=== PATIENT | male | born 1945 | race African-American/Black ===

== ENCOUNTER 2024-11-04 11:07 | Inpatient (IN) ==
[2024-11-04] MEDS: ZOFRAN INJ 4 MG VIAL IVP ONE (11:30)
[2024-11-04 11:35] LABS: MEAN PLATELET VOLUME 9.5 fL (7.4-11.0); RED CELL DISTRIBUTION WIDTH 16.5 % (11.6-16.5)
[2024-11-04 11:47] LABS: COR NA(FOR HYPERGLY) 141 mmol/L (136-145); CREATININE 1.57 mg/dL (0.70-1.30); eGFR NON BLACK RACES 46 (>60)
[2024-11-04] MEDS: MAG-OX TAB PO ONE (12:09)
[2024-11-04] MEDS: K-DUR TAB 20 MEQ PO ONE (12:09)
--- NOTE | 2024-11-04 12:40 | EKG ---
Test Reason : rapid irregular rate Blood Pressure : */* mmHG Vent. Rate : 113 BPM Atrial Rate : * BPM P-R Int : * ms QRS Dur : 104 ms QT Int : 360 ms P-R-T Axes : * -14 110 degrees QTc Int : 493 ms Sinus tachycardia with pacs Incomplete right bundle branch block Septal infarct (cited on or before 22-OCT-2024) Abnormal ECG When compared with ECG of 22-OCT-2024 10:49, Incomplete right bundle branch block is new Nonspecific T wave abnormality no longer evident in Inferior leads Confirmed by Kurtis Oviedo MD ([id number]) on 11/05/2024 7:38:30 AM Referred By: Confirmed By: Kurtis Oviedo MD
[2024-11-04] MEDS: LOPRESSOR INJ 5 MG AMP IVP ONE ×2 (12:51→12:56)
[2024-11-04 13:26] LABS: BLOOD/HEMOGLOBIN,URINE 1+ (NEGATIVE); LEUKOCYTE ESTERASE ,URINE 3+ (NEGATIVE); NITRITES,URINE POSITIVE (NEGATIVE)
[2024-11-04 13:31] LABS: APPEARANCE,URINE HAZY (CLEAR)
[2024-11-04 13:32] LABS: SQUAMOUS EPITHELIAL CELL,UR FEW /HPF (NEGATIVE)
--- NOTE | 2024-11-04 14:16 | DR.DIZZY ---
HPI Time seen Time Seen by Provider: 11/04/24 11:30 PCP Primary Care Physician: jeramy HPI Comment HPI Comment: Patient states he has hand hiccups for over 6 months and that is why he was getting the CT of his abdomen and pelvis today. He and his family state that he has just been feeling off over the last couple of days. Patient states he does not have water behind his eyes or popping in his ears but he feels like he can breathe through his ears at the time. He is alert and oriented x 3 but states it is just difficult for him to describe and that may be the best way is as generalized weakness. Complaint Chief Complaint:: "water behind eyes. popping in ears. weakness" Self Treatment fo Chief Complaint: n/a COVID-19 Coronavirus risk:travel/contact w/high risk person: No Has patient experienced Coronavirus symptoms: No Source History Provided: Patient Mode of Arrival Mode of Arrival: Wheelchair Timing Onset of Chief Complaint: 10/28/24 Context Stroke Symptoms: None PMH PMH Past Medical History: Yes Past Medical History: Diabetes, Hypertension and Cancer Past Medical History Comment: colon ca- 25 years ago Past Surgical History: Yes Past Surgical History Comment: partial colon removal 25 years ago Family History History of Family Medical Conditions: Yes Family Medical History: Diabetes Mellitus, Cancer, [place], Coronary Artery Disease and Hypertension Social History Type of Tobacco Use: None Do you use any recreational Drugs:: No Lives With: Alone Lives Where: Home Travel Risk Coronavirus risk:travel/contact w/high risk person: No Has patient experienced Coronavirus symptoms: No Infectious screening Have you traveled outside the country in the last 6 months?: No Isolation: Standard ROS Review of Systems Constitutional: No Symptoms Reported Eyes: No Symptoms Reported ENTM: No Symptoms Reported Respiratoy: No Symptoms Reported; negative Short of Breath or Wheezing Cardiovascular: No Symptoms Reported; negative Chest Pain, Edema, Palpitations or Syncope Gastrointestinal/Abdominal: See HPI Genitourinary: Frequency; negative Discharge, Dysuria or Hematuria Neurological: No Symptoms Reported Musculoskeletal: No Symptoms Reported Integumentary: No Symptoms Reported Hematologic/Lymphatic: No Symptoms Reported Endocrine: No Symptoms Reported Psychiatric: No Symptoms Reported All Other Systems: Reviewed and Negative PE Vital Signs Vitals: Vital Signs Temperature 97.9 F Pulse Rate 99 Pulse Rate 99 Pulse Rate 120 Respiratory Rate 17 Respiratory Rate 19 Respiratory Rate 18 Blood Pressure 125/88 Blood Pressure 147/107 Blood Pressure 155/85 O2 Sat by Pulse Oximetry 96 O2 Sat by Pulse Oximetry 98 General Limitations: No Limitations General Appearance: Alert and In No Apparent Distress Head Head Exam: Normal Inspection Eyes Eye exam: Normal Appearance ENT ENT Exam: Normal Exam, Normal Oropharynx and Normal External Ear Exam Neck Neck Exam: Normal Inspection and Full ROM Chest Chest Inspection: Normal Inspection Respiratory Respiratory Exam: Normal Lung Sounds Bilat Cardiovascular Cardiovascular Exam: Normal Rhythm and Tachycardia Abdominal Exam Abdominal Exam: Normal Inspection, Normal Bowel Sounds and Soft Rectal Rectal Exam: Deferred Extremeties Extremities Exam: Normal Inspection and Full ROM Back Back Exam: Normal Inspection and Full ROM Neurologic Neurological Exam: Alert and Oriented X3 Psychiatric Psychiatric Exam: Normal Affect and Normal Mood Skin Skin Exam: Warm, Dry, Intact and Normal Color COURSE Treatment Treatment: Patient with new onset A-fib, CHF exacerbation and UTI. Discussed results of workup with patient and family. Consultation Called: 14:16 Consultation Comments: Discussed case with Dr. Stanton and he is agreeable to admission. ROR Labs Reviewed Laboratory Results Reviewed?: Yes 11/04/24 10:35 11/04/24 10:35 Laboratory: WBC 4.8 X10^3/uL (3.6-10.0) 11/04/24 10:35 RBC 4.67 X10^6/uL (4.7-6.0) L 11/04/24 10:35 Hgb 12.2 g/dL (13.5-18.0) L 11/04/24 10:35 Hct 37.9 % (42.0-54.0) L 11/04/24 10:35 MCV 81.1 fL (80.0-100.0) 11/04/24 10:35 MCH 26.2 pg (27.0-34.0) L 11/04/24 10:35 MCHC 32.3 g/dL (33.0-35.0) L 11/04/24 10:35 RDW 16.5 % (11.6-16.5) 11/04/24 10:35 Plt Count 166 X10^3/uL (150.0-450.0) 11/04/24 10:35 MPV 9.5 fL (7.4-11.0) 11/04/24 10:35 Neut % (Auto) 67.3 % (42.0-75.0) 11/04/24 10:35 Lymph % (Auto) 25.6 % (21.0-51.0) 11/04/24 10:35 [place] % (Auto) 5.4 % (0.0-13.0) 11/04/24 10:35 Eos % (Auto) 1.0 % (0.9-2.9) 11/04/24 10:35 Baso % (Auto) 0.7 % (0.2-1.0) 11/04/24 10:35 Neut # (Auto) 3.2 x10^3/uL (2.2-4.8) 11/04/24 10:35 Lymph # (Auto) 1.2 X10^3/uL (1.3-2.9) L 11/04/24 10:35 [place] # (Auto) 0.3 x10^3/uL (0.3-0.8) 11/04/24 10:35 Eos # (Auto) 0.1 x10^3/uL (0.0-0.2) 11/04/24 10:35 Baso # (Auto) 0.0 X10^3/uL (0.0-0.1) 11/04/24 10:35 Absolute Nucleated RBC 0.1 /100WBC 11/04/24 10:35 Sodium 139 mmol/L (136-145) 11/04/24 10:35 Corrected Sodium 141 mmol/L (136-145) 11/04/24 10:35 Potassium 3.4 mmol/L (3.5-5.1) L 11/04/24 10:35 Chloride 102 mmol/L (98-107) 11/04/24 10:35 Carbon Dioxide 30.3 mmol/L (21-32) 11/04/24 10:35 BUN 13 mg/dL (7-18) 11/04/24 10:35 Creatinine 1.57 mg/dL (0.70-1.30) H 11/04/24 10:35 Est GFR (MDRD) Af Amer 55 (>60) L 11/04/24 10:35 Est GFR (MDRD) Non-Af 46 (>60) L 11/04/24 10:35 Glucose 195 mg/dL (65-99) H 11/04/24 10:35 Calcium 9.2 mg/dL (8.5-10.1) 11/04/24 10:35 Corrected Calcium TNP 11/04/24 10:35 Magnesium 1.5 mg/dL (2.0-2.9) L 11/04/24 10:35 Total Bilirubin 2.40 mg/dL (0.2-1.0) H 11/04/24 10:35 AST 41 Units/L (15-37) H 11/04/24 10:35 ALT 68 Units/L (12-78) 11/04/24 10:35 Alkaline Phosphatase 231 Units/L (46-116) H 11/04/24 10:35 B-Natriuretic Peptide 1640 pg/mL (0-79) H 11/04/24 10:35 Total Protein 7.9 g/dL (6.4-8.2) 11/04/24 10:35 Albumin 3.6 g/dL (3.4-5.0) 11/04/24 10:35 Globulin 4.3 g/dL (2.5-4.5) 11/04/24 10:35 Albumin/Globulin Ratio 0.8 Ratio (1.1-2.1) L 11/04/24 10:35 Amylase 63 Units/L (25-115) 11/04/24 10:35 Lipase 17 Units/L (16-77) 11/04/24 10:35 Specimen Type Clean catch urine 11/04/24 13:19 Urine Color Dark yellow (YELLOW) 11/04/24 13:19 Urine Appearance Hazy (CLEAR) 11/04/24 13:19 Urine pH 5.0 (5.0 - 8.0) 11/04/24 13:19 Ur Specific [place] 1.010 (1.000-1.030) 11/04/24 13:19 Urine Protein 3+ (NEGATIVE) 11/04/24 13:19 Urine Glucose (UA) Negative (NEGATIVE) 11/04/24 13:19 Urine Ketones Negative (NEGATIVE) 11/04/24 13:19 Urine Blood 1+ (NEGATIVE) 11/04/24 13:19 Urine Nitrite Positive (NEGATIVE) 11/04/24 13:19 Urine Bilirubin Negative (NEGATIVE) 11/04/24 13:19 Urine Urobilinogen 1+ (NORMAL) 11/04/24 13:19 Ur Leukocyte Esterase 3+ (NEGATIVE) 11/04/24 13:19 Urine RBC 3-5 /HPF (0-3) A 11/04/24 13:19 Urine WBC 10-20 /HPF (0-5) A 11/04/24 13:19 Ur Squamous Epith Cells Few /HPF (NEGATIVE) 11/04/24 13:19 Amorphous Sediment 1+ /HPF (NEGATIVE) 11/04/24 13:19 Urine Bacteria 2+ /HPF (NEGATIVE) 11/04/24 13:19 Ur Culture Indicated? Yes/culture set up 11/04/24 13:19 Other Results Comments: Name: JORGE LUIS HUGHES : 1945 Sex: M Location: [facility] Order Number(s): [id number] Procedure(s):CT ABDOMEN/PELVIS WITH CON Ordering Physician: FLETCHER RIVERA Primary Care: Glen Stanton MD Service Date: 11/04/24 Service Time: 1100 EXAM: CT ABDOMEN AND PELVIS WITH CONTRAST HISTORY: Weight loss Vomiting History of malignant neoplasm; COMPARISON: CT chest dated 10/22/2024. TECHNIQUE: Axial CT images were obtained through the abdomen and pelvis after the intravenous administration of contrast. Coronal and sagittal reformatted images were included. Informed written consent was obtained prior to contrast administration. All CT scans at this facility use dose modulation, iterative reconstruction, and/or weight based dosing when appropriate to reduce radiation dose to as low as reasonably achievable. FINDINGS: Cardiomegaly. Small pleural effusions, [id number]-left. Unremarkable liver. Small dependent calcified gallstone. No gallbladder wall thickening or pericholecystic fluid. No biliary dilatation. Spleen, pancreas, and adrenals are unremarkable. Kidneys enhance symmetrically and there is no hydronephrosis or perinephric stranding. Simple fluid density right kidney 2.3 cm cyst. Mild aortoiliac atherosclerosis without aneurysm. No lymphadenopathy. No abnormally distended or focally thickened bowel loops. Normal right lower quadrant appendix. No free air. Trace ascites is predominantly perihepatic and extending into the pelvis. Mild diffuse urinary bladder wall thickening. No acute or suspicious osseous findings. Mild lumbar spondylosis. IMPRESSION: 1. Mild diffuse urinary bladder wall thickening may be secondary to underdistention or cystitis. Correlate with urinalysis. 2. Cardiomegaly with small pleural effusions, [id number]-left. Findings are suspicious for fluid overload and possible pulmonary edema. THIS IS AN ELECTRONICALLY VERIFIED FINAL REPORT 11/04/2024 12:38 PM - Electronically signed by Michael Chan MD EKG Rate: 113 Rhythm: Afib ST: Normal Opioid Opioid Risk Tool Age ([place] box if 16-45): No History of Preadolescent Sexual Abuse: No Total: 0 Total Score Risk Category: Low Risk Copyright: [facility] predicting aberrant behaviors Discharge Plan Diagnosis Discharge Problem: Acute UTI, New onset atrial fibrillation, CHF exacerbation Discharge Plan Patient Disposition: ADMITTED INPATIENT Condition: Stable Prescriptions: No Action chlorpromazine 10 mg tablet 10 mg PO TID PRN (Reason: hiccups) 10 Days Qty: 30 0RF metformin 1,000 mg tablet 1,000 mg PO BID 90 Days Qty: 180 4RF simvastatin 40 mg tablet 40 mg PO QDAY 90 Days Qty: 90 4RF metoprolol tartrate 50 mg tablet 50 mg PO BID 90 Days Qty: 180 4RF pioglitazone 30 mg tablet 30 mg PO QDAY 90 Days Qty: 90 4RF chlorpromazine 25 mg tablet 25 mg PO TID MDD 3 Qty: 30 0RF pantoprazole 40 mg tablet,delayed release (DR/EC) 40 mg PO QDAY MDD 1 Qty: 30 0RF Health Concerns: Post Hospitalization: new medications and changes needed to prevent readmission or further decline. Pt educated and given instructions on all concerns. Plan of Treatment: Continue with present treatment and follow up plan. Pt is to keep follow up appointment as instructed and take medications as ordered. Orders to Discharge Patient Discharge Orders: Transfer (Routine); Ordered 11/04/24 Ordered By: Nasim Chandler Follow ups/Referrals Follow ups/Referrals: Glen Stanton MD [Primary Care Provider, MEDICAL] - 3 days Instructions Stand Alone Forms: Find Help Web Site, Post Hospital Follow Up Care Print Language: ARMENIAN
[2024-11-04] MEDS: ROCEPHIN VIAL 1 GRAM 1 G in NS 100 ML IV 100 ML IV ONE (14:31)
[2024-11-04] MEDS: LASIX IVP ONE (14:35)
[2024-11-04] MEDS: ROCEPHIN VIAL 1 GRAM IVP ONE (14:36)
[2024-11-04] MEDS ORDERED: ULTRAM PO PRN (15:53)
[2024-11-04] MEDS ORDERED: TYLENOL 325 MG TAB PO PRN (15:53)
[2024-11-04] MEDS ORDERED: NORCO 5/325 MG TAB PO PRN (15:53)
[2024-11-04] MEDS ORDERED: ZOFRAN INJ 4 MG VIAL IVP PRN (15:53)
[2024-11-04] MEDS: NovoLIN R (or HumuLIN R) SUBCUT PRN (18:01)
[2024-11-04] MEDS: MAG-OX TAB PO NR (18:22)
[2024-11-04] MEDS: KLOR-CON 10 MEQ TAB PO NR (18:23)
[2024-11-04] MEDS: SNACK - Diabetic Appropriate PO SCH (19:00)
[2024-11-04] MEDS: LOPRESSOR INJ 5 MG AMP ONE (19:11)
[2024-11-04] MEDS: CONSULT PHARMACY - POTASSIUM & MAGNESIUM XX SCH (19:11)
[2024-11-04] MEDS: ROCEPHIN VIAL 1 GRAM ONE (19:11)
--- NOTE | 2024-11-04 19:27 | DR.H&P ---
H&P History & Physical for Day of: H&P Date: 11/04/24 Chief Complaint Chief Complaint: hiccups generalized weakness History of Present Illness History of Present Illness: Patient is a 79-year-old male with a past medical history of hypertension, diabetes, CKD, GERD, presenting with generalized weakness and having hiccups. He has difficulty explaining exactly how he is feeling. He denies having chest pain or feeling really short of breath. Denies fevers or chills. Reports some urinary frequency but denies dysuria. Labs/imaging: WBC 4.8, hemoglobin 12.2, platelets 166, sodium 139, potassium 3.4, creatinine 1.57, glucose 195, BNP 1640, UA consistent with infection, urine culture pending. CT abdomen pelvis was obtained that revealed mild diffuse urinary bladder wall thickening may be secondary to underdistention or cystitis. Cardiomegaly with small pleural effusions right greater than left. Patient was also noted to have atrial fibrillation in the ER. He denies any history of that diagnosis. He was treated with IV metoprolol and had responded. Patient was admitted for atrial fibrillation with RVR, CHF exacerbation, and acute cystitis. He was started on IV antibiotics Rocephin. He was also given IV Lasix 20 mg x 1. Will order echo. Will also start patient on Eliquis. [id number] score is 5. Rate appears controlled at time of evaluation. Will restart home medications which does include metoprolol. Will order chest x-ray for the morning. Hypokalemia on labs, replete electrolytes per protocol. Otherwise continue with current treatment plan. Continue closely monitor and follow-up labs/imaging. Time spent on clinical assessment, reviewing labs and imaging, decision making, and documentation greater than 45 minutes. Past Medical History Past Medical History: Diabetes, Hypertension and Cancer Family History Family Medical History: Diabetes Mellitus, Cancer, [place], Coronary Artery Disease and Hypertension Social History Type of Tobacco Use: None Medications Home Medications: Home Medications Medication Instructions Recorded Confirmed Type insulin NPH isoph U-100 human 100 7 unit subcut BID 11/04/24 History unit/mL subcutaneous cartridge irbesartan 150 1 tab PO QDAY 11/04/2411/04 History mg-hydrochlorothiazide 12.5 mg tablet Allergies Allergies Allergy/AdvReac Type Severity Reaction Status Date / Time No Known Drug Allergies Allergy Unknown Verified 11/04/24 12:00 (NKDA) Labs 11/04/24 10:35 11/04/24 10:35 Labs: Laboratory WBC 4.8 X10^3/uL (3.6-10.0) 11/04/24 10:35 RBC 4.67 X10^6/uL (4.7-6.0) L 11/04/24 10:35 Hgb 12.2 g/dL (13.5-18.0) L 11/04/24 10:35 Hct 37.9 % (42.0-54.0) L 11/04/24 10:35 MCV 81.1 fL (80.0-100.0) 11/04/24 10:35 MCH 26.2 pg (27.0-34.0) L 11/04/24 10:35 MCHC 32.3 g/dL (33.0-35.0) L 11/04/24 10:35 RDW 16.5 % (11.6-16.5) 11/04/24 10:35 Plt Count 166 X10^3/uL (150.0-450.0) 11/04/24 10:35 MPV 9.5 fL (7.4-11.0) 11/04/24 10:35 Neut % (Auto) 67.3 % (42.0-75.0) 11/04/24 10:35 Lymph % (Auto) 25.6 % (21.0-51.0) 11/04/24 10:35 [place] % (Auto) 5.4 % (0.0-13.0) 11/04/24 10:35 Eos % (Auto) 1.0 % (0.9-2.9) 11/04/24 10:35 Baso % (Auto) 0.7 % (0.2-1.0) 11/04/24 10:35 Neut # (Auto) 3.2 x10^3/uL (2.2-4.8) 11/04/24 10:35 Lymph # (Auto) 1.2 X10^3/uL (1.3-2.9) L 11/04/24 10:35 [place] # (Auto) 0.3 x10^3/uL (0.3-0.8) 11/04/24 10:35 Eos # (Auto) 0.1 x10^3/uL (0.0-0.2) 11/04/24 10:35 Baso # (Auto) 0.0 X10^3/uL (0.0-0.1) 11/04/24 10:35 Absolute Nucleated RBC 0.1 /100WBC 11/04/24 10:35 Sodium 139 mmol/L (136-145) 11/04/24 10:35 Corrected Sodium 141 mmol/L (136-145) 11/04/24 10:35 Potassium 3.4 mmol/L (3.5-5.1) L 11/04/24 10:35 Chloride 102 mmol/L (98-107) 11/04/24 10:35 Carbon Dioxide 30.3 mmol/L (21-32) 11/04/24 10:35 BUN 13 mg/dL (7-18) 11/04/24 10:35 Creatinine 1.57 mg/dL (0.70-1.30) H 11/04/24 10:35 Est GFR (MDRD) Af Amer 55 (>60) L 11/04/24 10:35 Est GFR (MDRD) Non-Af 46 (>60) L 11/04/24 10:35 Glucose 195 mg/dL (65-99) H 11/04/24 10:35 POC Glucose (mg/dL) 222 mg/dL (65-99) H 11/04/24 17:54 Calcium 9.2 mg/dL (8.5-10.1) 11/04/24 10:35 Corrected Calcium TNP 11/04/24 10:35 Magnesium 1.5 mg/dL (2.0-2.9) L 11/04/24 10:35 Total Bilirubin 2.40 mg/dL (0.2-1.0) H 11/04/24 10:35 AST 41 Units/L (15-37) H 11/04/24 10:35 ALT 68 Units/L (12-78) 11/04/24 10:35 Alkaline Phosphatase 231 Units/L (46-116) H 11/04/24 10:35 B-Natriuretic Peptide 1640 pg/mL (0-79) H 11/04/24 10:35 Total Protein 7.9 g/dL (6.4-8.2) 11/04/24 10:35 Albumin 3.6 g/dL (3.4-5.0) 11/04/24 10:35 Globulin 4.3 g/dL (2.5-4.5) 11/04/24 10:35 Albumin/Globulin Ratio 0.8 Ratio (1.1-2.1) L 11/04/24 10:35 Amylase 63 Units/L (25-115) 11/04/24 10:35 Lipase 17 Units/L (16-77) 11/04/24 10:35 Specimen Type Clean catch urine 11/04/24 13:19 Urine Color Dark yellow (YELLOW) 11/04/24 13:19 Urine Appearance Hazy (CLEAR) 11/04/24 13:19 Urine pH 5.0 (5.0 - 8.0) 11/04/24 13:19 Ur Specific [place] 1.010 (1.000-1.030) 11/04/24 13:19 Urine Protein 3+ (NEGATIVE) 11/04/24 13:19 Urine Glucose (UA) Negative (NEGATIVE) 11/04/24 13:19 Urine Ketones Negative (NEGATIVE) 11/04/24 13:19 Urine Blood 1+ (NEGATIVE) 11/04/24 13:19 Urine Nitrite Positive (NEGATIVE) 11/04/24 13:19 Urine Bilirubin Negative (NEGATIVE) 11/04/24 13:19 Urine Urobilinogen 1+ (NORMAL) 11/04/24 13:19 Ur Leukocyte Esterase 3+ (NEGATIVE) 11/04/24 13:19 Urine RBC 3-5 /HPF (0-3) A 11/04/24 13:19 Urine WBC 10-20 /HPF (0-5) A 11/04/24 13:19 Ur Squamous Epith Cells Few /HPF (NEGATIVE) 11/04/24 13:19 Amorphous Sediment 1+ /HPF (NEGATIVE) 11/04/24 13:19 Urine Bacteria 2+ /HPF (NEGATIVE) 11/04/24 13:19 Ur Culture Indicated? Yes/culture set up 11/04/24 13:19 Review of Systems Constitutional: Weakness Eyes: No Symptoms Reported ENT: No Symptoms Reported Respiratory: No Symptoms Reported Cardiovascular: No Symptoms Reported Gastrointestinal: No Symptoms Reported Genitourinary: Frequency Musculoskeletal: No Symptoms Reported Skin: No Symptoms Reported Neurological: No Symptoms Reported Physical Exam Vital Signs: Vital Signs Temperature 97.7 F Temperature 97.9 F Pulse Rate [Bilateral Radial] 112 Pulse Rate [Bilateral Radial] 110 Pulse Rate [Bilateral Radial] 110 Pulse Rate 109 Pulse Rate 106 Pulse Rate 106 Pulse Rate 106 Pulse Rate 101 Pulse Rate 100 Pulse Rate 97 Pulse Rate 98 Pulse Rate 98 Pulse Rate 97 Pulse Rate 99 Pulse Rate 99 Pulse Rate 120 Respiratory Rate 25 Respiratory Rate 28 Respiratory Rate 29 Respiratory Rate 14 Respiratory Rate 12 Respiratory Rate 20 Respiratory Rate 34 Respiratory Rate 15 Respiratory Rate 14 Respiratory Rate 18 Respiratory Rate 20 Respiratory Rate 16 Respiratory Rate 16 Respiratory Rate 20 Respiratory Rate 17 Respiratory Rate 19 Respiratory Rate 18 Blood Pressure [Right Arm] 121/71 Blood Pressure [Right Arm] 123/90 Blood Pressure [Right Arm] 130/98 Blood Pressure 119/83 Blood Pressure 128/90 Blood Pressure 134/105 Blood Pressure 134/105 Blood Pressure 135/83 Blood Pressure 107/80 Blood Pressure 107/80 Blood Pressure 125/88 Blood Pressure 147/107 Blood Pressure 155/85 O2 Sat by Pulse Oximetry 95 O2 Sat by Pulse Oximetry 92 O2 Sat by Pulse Oximetry 92 O2 Sat by Pulse Oximetry 97 O2 Sat by Pulse Oximetry 96 O2 Sat by Pulse Oximetry 95 O2 Sat by Pulse Oximetry 98 O2 Sat by Pulse Oximetry 99 O2 Sat by Pulse Oximetry 96 O2 Sat by Pulse Oximetry 98 Oriented: Normal Eyes: Normal Ear: Normal Nose: Normal Throat: Normal Respiratory: Clear Throughout Cardiovascular: Irregular : Normal Auscultation: Bowel Sounds: Normal Palpation: Normal Tenderness: Normal Skin: Normal Musculoskeletal: Normal Psychiatric: Normal Mood Description: Calm and Appropriate Affect: Normal Speech Pattern: Clear and Appropriate Assessment/Plan (1) New onset atrial fibrillation: Status: Acute Plan: monitor, start on eliquis, restart home metoprolol tartrate (2) CHF exacerbation: Qualifiers: Heart failure type: unspecified Qualified Code(s): I50.9 - Heart failure, unspecified Status: Acute Plan: will order echo (3) Acute UTI: Status: Acute Plan: IV rocephin, follow up urine culture (4) Mixed hyperlipidemia: Status: Acute (5) Hypertension: Qualifiers: Hypertension type: primary hypertension Qualified Code(s): I10 - Essential (primary) hypertension Status: Acute (6) Type 2 diabetes mellitus: Qualifiers: Diabetes mellitus longterm insulin use: without longterm use Diabetes mellitus complication status: with other specified complication Qualified Code(s): E11.69 - Type 2 diabetes mellitus with other specified complication Status: Acute Review H&P Reviewed: Yes Patient was examined?: Yes
[2024-11-04 19:49] VITALS: BMI 24.5
[2024-11-04] MEDS: ELIQUIS PO SCH (20:34)
[2024-11-04] MEDS: LOPRESSOR TAB 50 MG PO SCH (20:35)
[2024-11-04] MEDS ORDERED: LOPRESSOR TAB 50 MG PO SCH (21:00)
[2024-11-05 05:53] LABS: MEAN PLATELET VOLUME 9.3 fL (7.4-11.0); RED CELL DISTRIBUTION WIDTH 16.9 % (11.6-16.5)
[2024-11-05 06:16] LABS: COR NA(FOR HYPERGLY) 141 mmol/L (136-145); CREATININE 1.78 mg/dL (0.70-1.30); eGFR NON BLACK RACES 40 (>60)
[2024-11-05] MEDS ORDERED: CONSULT PHARMACY - POTASSIUM & MAGNESIUM XX SCH (07:00)
[2024-11-05] MEDS: MAG-OX TAB PO SCH (08:42)
[2024-11-05] MEDS: ZOCOR TAB 40 MG PO SCH (08:43)
[2024-11-05] MEDS: PROTONIX TAB 40 MG PO SCH (08:43)
[2024-11-05] MEDS: ROCEPHIN VIAL 1 GRAM 1 G in NS 100 ML IV 100 ML IV SCH (08:45)
[2024-11-05] MEDS: NS 250 ML IV 250 ML IV ONE (08:45)
--- NOTE | 2024-11-05 12:00 | US ---
EXAMINATION: GALL BLADDER HISTORY: ABD PAIN; . COMPARISON STUDY: None. TECHNIQUE: Real-time grayscale, color flow, duplex Doppler spectral analysis right upper abdominal quadrant FINDINGS: The gallbladder is mildly distended. There are multiple gallstones. There is dense material throughout the lumen of the gallbladder suspect biliary sludge however soft tissue mass lesion can not be ruled out. Gallbladder chapman measure 3.5 mm thickness. Common bile duct measures 3.2 mm diameter. No intrahepatic bile duct dilatation. The liver has a normal echotexture and measures 16 cm longitudinal oblique dimension. Normal venous waveforms within the imaged hepatic vein. Nonspecific sinusoidal waveforms within the main portal vein primarily directed toward the liver potentially representing early portal systemic hypertension. Limited views of the right kidney show no hydronephrosis. There is a 2.3 x 2.5 cm cyst inferior pole right kidney. IMPRESSION: Mild distention of the gallbladder containing gallstones and soft tissue density as described above. Slight diffuse gallbladder wall thickening. Recommend further evaluation with a CT of the abdomen with thin images acquired pre and post administration of intravenous contrast. Other incidental findings as discussed above THIS IS AN ELECTRONICALLY VERIFIED FINAL REPORT 11/05/2024 11:57 AM - Electronically signed by Sera Pineda MD
--- NOTE | 2024-11-05 12:38 | RAD ---
EXAM: CHEST, 1 VIEW HISTORY: CHF; DM HTN, COLON CA-25 YEARS AGO SX: PARTIAL COLON REMOVAL COMPARISON: 10/22/2024 TECHNIQUE: AP portable FINDINGS: Stable prominent cardiac silhouette, accentuated by AP technique. Pulmonary vascular engorgement. Mild hazy perihilar opacities. No large pleural effusion or visible pneumothorax. IMPRESSION: Pulmonary vascular engorgement and suspected mild central pulmonary edema. THIS IS AN ELECTRONICALLY VERIFIED FINAL REPORT 11/05/2024 12:34 PM - Electronically signed by Michael Chan MD
--- NOTE | 2024-11-05 18:37 | PCM.PROG ---
Progress Note Progress Note for Day of Date of Exam: 11/05/24 Subjective Subjective: Patient is a 79-year-old male with a past medical history of hypertension, diabetes, CKD, GERD, admitted for atrial fibrillation with RVR, CHF exacerbation, and acute cystitis. This morning, he is resting comfortably in bed. No acute events overnight. He does continue to report shortness of breath. Labs/imaging: WBC 5.4, hemoglobin 12.1, platelets 163, sodium 140, potassium 4.2, creatinine 1.78, glucose 144, Mag 1.5, AST 253, ALT 254, ALP 254, urine culture pending. CXR pending. He is currently receiving IV antibiotics Rocephin. Echo ordered, pending results. He has been started on eliquis. This morning, he is rate controlled. Home medications have been resumed. Replete electrolytes per protocol. Elevated liver enzymes and bilirubin. Will consult general surgeryDr. Lara for further evaluation. Otherwise, continue with current treatment plan. Continue closely monitor and follow-up labs/imaging. Time spent on clinical assessment, reviewing labs and imaging, decision making, and documentation greater than 45 minutes. Past Medical Family Social History Allergies: Allergies No Known Drug Allergies (NKDA) Allergy (Unknown, Verified 11/04/24 12:00) Review of Systems ROS changes noted: see HPI Vital Signs and I&O's Vital Signs: Vital Signs Temperature 98.2 F Temperature 98.1 F Pulse Rate 95 Pulse Rate 93 Respiratory Rate 20 Respiratory Rate 15 Blood Pressure 139/92 Blood Pressure 107/73 O2 Sat by Pulse Oximetry 96 O2 Sat by Pulse Oximetry 97 Intake and Output: Intake & Output 11/02/24 11/03/24 11/04/24 11/05/24 23:59 23:59 23:59 23:59 Intake Total 620 / 620 Output Total 200 / 200 Balance -200 / -200 620 / 620 Physical Exam Oriented: Normal Eyes: Normal Ear: Normal Nose: Normal Throat: Normal Respiratory: Normal Cardiovascular: Irregular : Normal Auscultation: Bowel Sounds: Normal Tenderness: Normal Skin: Normal Musculoskeletal: Normal Psychiatric: Normal Mood Description: Calm and Appropriate Affect: Normal Speech Pattern: Clear and Appropriate Laboratory and Diagnostics 11/05/24 05:40 11/05/24 05:40 Labs: 11/04/24 13:19 Urine,Clean Catch Urine Culture - Preliminary Laboratory WBC 5.4 X10^3/uL (3.6-10.0) 11/05/24 05:40 RBC 4.65 X10^6/uL (4.7-6.0) L 11/05/24 05:40 Hgb 12.1 g/dL (13.5-18.0) L 11/05/24 05:40 Hct 37.0 % (42.0-54.0) L 11/05/24 05:40 MCV 79.7 fL (80.0-100.0) L 11/05/24 05:40 MCH 26.1 pg (27.0-34.0) L 11/05/24 05:40 MCHC 32.8 g/dL (33.0-35.0) L 11/05/24 05:40 RDW 16.9 % (11.6-16.5) H 11/05/24 05:40 Plt Count 163 X10^3/uL (150.0-450.0) 11/05/24 05:40 MPV 9.3 fL (7.4-11.0) 11/05/24 05:40 Neut % (Auto) 70.0 % (42.0-75.0) 11/05/24 05:40 Lymph % (Auto) 18.5 % (21.0-51.0) L 11/05/24 05:40 [place] % (Auto) 10.3 % (0.0-13.0) 11/05/24 05:40 Eos % (Auto) 0.4 % (0.9-2.9) L 11/05/24 05:40 Baso % (Auto) 0.8 % (0.2-1.0) 11/05/24 05:40 Neut # (Auto) 3.8 x10^3/uL (2.2-4.8) 11/05/24 05:40 Lymph # (Auto) 1.0 X10^3/uL (1.3-2.9) L 11/05/24 05:40 [place] # (Auto) 0.6 x10^3/uL (0.3-0.8) 11/05/24 05:40 Eos # (Auto) 0.0 x10^3/uL (0.0-0.2) 11/05/24 05:40 Baso # (Auto) 0.0 X10^3/uL (0.0-0.1) 11/05/24 05:40 Absolute Nucleated RBC 0.2 /100WBC 11/05/24 05:40 Sodium 140 mmol/L (136-145) 11/05/24 05:40 Corrected Sodium 141 mmol/L (136-145) 11/05/24 05:40 Potassium 4.2 mmol/L (3.5-5.1) 11/05/24 05:40 Chloride 102 mmol/L (98-107) 11/05/24 05:40 Carbon Dioxide 26.5 mmol/L (21-32) 11/05/24 05:40 BUN 15 mg/dL (7-18) 11/05/24 05:40 Creatinine 1.78 mg/dL (0.70-1.30) H 11/05/24 05:40 Est GFR (MDRD) Af Amer 48 (>60) L 11/05/24 05:40 Est GFR (MDRD) Non-Af 40 (>60) L 11/05/24 05:40 Glucose 144 mg/dL (65-99) H 11/05/24 05:40 POC Glucose (mg/dL) 169 mg/dL (65-99) H 11/05/24 17:06 Calcium 9.1 mg/dL (8.5-10.1) 11/05/24 05:40 Corrected Calcium TNP 11/05/24 05:40 Magnesium 1.5 mg/dL (2.0-2.9) L 11/05/24 05:40 Total Bilirubin 3.30 mg/dL (0.2-1.0) H 11/05/24 05:40 AST 253 Units/L (15-37) H 11/05/24 05:40 ALT 247 Units/L (12-78) H 11/05/24 05:40 Alkaline Phosphatase 254 Units/L (46-116) H 11/05/24 05:40 B-Natriuretic Peptide 1730 pg/mL (0-79) H 11/05/24 05:40 Total Protein 7.3 g/dL (6.4-8.2) 11/05/24 05:40 Albumin 3.4 g/dL (3.4-5.0) 11/05/24 05:40 Globulin 3.9 g/dL (2.5-4.5) 11/05/24 05:40 Albumin/Globulin Ratio 0.9 Ratio (1.1-2.1) L 11/05/24 05:40 Amylase 63 Units/L (25-115) 11/04/24 10:35 Lipase 17 Units/L (16-77) 11/04/24 10:35 Specimen Type Clean catch urine 11/04/24 13:19 Urine Color Dark yellow (YELLOW) 11/04/24 13:19 Urine Appearance Hazy (CLEAR) 11/04/24 13:19 Urine pH 5.0 (5.0 - 8.0) 11/04/24 13:19 Ur Specific [place] 1.010 (1.000-1.030) 11/04/24 13:19 Urine Protein 3+ (NEGATIVE) 11/04/24 13:19 Urine Glucose (UA) Negative (NEGATIVE) 11/04/24 13:19 Urine Ketones Negative (NEGATIVE) 11/04/24 13:19 Urine Blood 1+ (NEGATIVE) 11/04/24 13:19 Urine Nitrite Positive (NEGATIVE) 11/04/24 13:19 Urine Bilirubin Negative (NEGATIVE) 11/04/24 13:19 Urine Urobilinogen 1+ (NORMAL) 11/04/24 13:19 Ur Leukocyte Esterase 3+ (NEGATIVE) 11/04/24 13:19 Urine RBC 3-5 /HPF (0-3) A 11/04/24 13:19 Urine WBC 10-20 /HPF (0-5) A 11/04/24 13:19 Ur Squamous Epith Cells Few /HPF (NEGATIVE) 11/04/24 13:19 Amorphous Sediment 1+ /HPF (NEGATIVE) 11/04/24 13:19 Urine Bacteria 2+ /HPF (NEGATIVE) 11/04/24 13:19 Ur Culture Indicated? Yes/culture set up 11/04/24 13:19 Plan (1) New onset atrial fibrillation: Status: Acute Plan: monitor, start on eliquis, restart home metoprolol tartrate (2) CHF exacerbation: Status: Acute Qualifiers: Heart failure type: unspecified Qualified Code(s): I50.9 - Heart failure, unspecified Plan: will order echo (3) Acute UTI: Status: Acute Plan: IV rocephin, follow up urine culture (4) Mixed hyperlipidemia: Status: Acute (5) Hypertension: Status: Acute Qualifiers: Hypertension type: primary hypertension Qualified Code(s): I10 - Essential (primary) hypertension (6) Type 2 diabetes mellitus: Status: Acute Qualifiers: Diabetes mellitus terminal worker insulin use: without long-term use Diabetes mellitus complication status: with other specified complication Qualified Code(s): E11.69 - Type 2 diabetes mellitus with other specified complication
[2024-11-06 06:25] LABS: MEAN PLATELET VOLUME 9.5 fL (7.4-11.0); RED CELL DISTRIBUTION WIDTH 16.6 % (11.6-16.5)
[2024-11-06 06:36] LABS: COR NA(FOR HYPERGLY) 141 mmol/L (136-145); CREATININE 2.05 mg/dL (0.70-1.30); eGFR NON BLACK RACES 34 (>60)
[2024-11-06] MEDS: MAG-OX TAB PO SCH (08:54)
[2024-11-06] MEDS: KLOR-CON 10 MEQ TAB PO SCH (13:37)
[2024-11-06] MEDS: LASIX IVP ONE (13:37)
[2024-11-07 06:43] LABS: MEAN PLATELET VOLUME 9.4 fL (7.4-11.0); RED CELL DISTRIBUTION WIDTH 16.6 % (11.6-16.5)
[2024-11-07 06:54] LABS: COR CA(FOR HYPOALB) 9.5 mg/dL (8.5-10.1); COR NA(FOR HYPERGLY) 138.0 mmol/L (136-145); CREATININE 2.14 mg/dL (0.70-1.30); eGFR NON BLACK RACES 32.0 (>60)
[2024-11-07] MEDS: MILK OF MAGNESIA PO SCH (08:35)
[2024-11-07] MEDS: MAG-OX TAB ONE (09:48)
[2024-11-07] MEDS: THORAZINE INJ 25 MG AMP IM SCH (10:22)
[2024-11-07] MEDS: THORAZINE TAB 25 MG PO SCH (10:27)
--- NOTE | 2024-11-07 10:58 | RAD ---
EXAM: CHEST, 1 VIEW HISTORY: CHF; COMPARISON: 11/05/2024 r.br.br.br.br.br.br.br prominent cardiac silhouette, accentuated by AP technique. Pulmonary vascular engorgement. Mild hazy perihilar opacities. No large pleural effusion or visible pneumothorax. Chronic mid left clavicle fracture deformity. IMPRESSION: Pulmonary vascular engorgement and suspected central pulmonary edema. THIS IS AN ELECTRONICALLY VERIFIED FINAL REPORT 11/07/2024 10:55 AM - Electronically signed by Michael Chan MD
[2024-11-07] MEDS: CONSULT PHARMACY - POTASSIUM & MAGNESIUM XX SCH (13:06)
[2024-11-07] MEDS: COLACE CAP 100 MG PO SCH (21:45)
[2024-11-08 06:10] LABS: MEAN PLATELET VOLUME 9.3 fL (7.4-11.0); RED CELL DISTRIBUTION WIDTH 16.9 % (11.6-16.5)
[2024-11-08 06:12] LABS: COR CA(FOR HYPOALB) 9.5 mg/dL (8.5-10.1); COR NA(FOR HYPERGLY) 141.0 mmol/L (136-145); CREATININE 1.81 mg/dL (0.70-1.30); eGFR NON BLACK RACES 39.0 (>60)
--- NOTE | 2024-11-08 10:26 | PCM.PROG ---
Progress Note Progress Note for Day of Date of Exam: 11/08/24 Subjective Subjective: Patient seen at bedside, no acute events overnight. He is feeling better. Currently admitted for atrial fibrillation with RVR, CHF exacerbation and UTI. He is currently on IV Rocephin. He did have elevated liver enzymes and gallbladder ultrasound showed some gallbladder thickening. Dr. Alfaro has been consulted. Patient denies abdominal pain, nausea or vomiting. Labs/imaging reviewed: - WBC 6 hemoglobin 12.7 platelet 141 potassium 4 creatinine 1.81 - AST 265 ALT 529 alk phos 223 - Urine culture E. coli - Chest x-ray: Pulmonary edema - Echocardiogram Plan: Continue telemetry, monitor blood pressure and heart rate. Continue current medications. Continue Rocephin. Replace electrolytes as per protocol. Follow echo results. Follow surgery recommendations. Continue home medications. Monitor a.m. labs and imaging. Time spent on clinical assessment, reviewing labs and imaging, decision making, and documentation greater than 45 minutes. Past Medical Family Social History Allergies: Allergies No Known Drug Allergies (NKDA) Allergy (Unknown, Verified 11/04/24 12:00) Vital Signs and I&O's Vital Signs: Vital Signs Temperature 97.5 F Temperature 97.7 F Pulse Rate 78 Pulse Rate 77 Pulse Rate 70 Pulse Rate 69 Respiratory Rate 18 Blood Pressure 114/71 Blood Pressure 96/57 O2 Sat by Pulse Oximetry 99 O2 Sat by Pulse Oximetry 98 O2 Sat by Pulse Oximetry 98 O2 Sat by Pulse Oximetry 95 Intake and Output: Intake & Output 11/05/24 11/06/24 11/07/24 11/08/24 23:59 23:59 23:59 23:59 Intake Total 630 / 630 1010 / 1010 1367 / 1367 490 / 490 Output Total 200 / 200 550 / 550 301 / 301 Balance 630 / 630 810 / 810 817 / 817 189 / 189 Physical Exam Oriented: Normal Eyes: Normal Ear: Normal Nose: Normal Throat: Normal Respiratory: Normal Cardiovascular: Irregular Auscultation: Bowel Sounds: Normal Palpation: Normal Tenderness: Normal Skin: Normal Musculoskeletal: Normal Psychiatric: Normal Mood Description: Calm and Appropriate Affect: Normal Speech Pattern: Clear and Appropriate Laboratory and Diagnostics 11/08/24 05:44 11/08/24 05:44 Labs: 11/04/24 13:19 Urine,Clean Catch Urine Culture - Final Escherichia Coli Laboratory WBC 6.0 X10^3/uL (3.6-10.0) 11/08/24 05:44 RBC 4.97 X10^6/uL (4.7-6.0) 11/08/24 05:44 Hgb 12.7 g/dL (13.5-18.0) L 11/08/24 05:44 Hct 40.1 % (42.0-54.0) L 11/08/24 05:44 MCV 80.7 fL (80.0-100.0) 11/08/24 05:44 MCH 25.5 pg (27.0-34.0) L 11/08/24 05:44 MCHC 31.6 g/dL (33.0-35.0) L 11/08/24 05:44 RDW 16.9 % (11.6-16.5) H 11/08/24 05:44 Plt Count 141 X10^3/uL (150.0-450.0) L 11/08/24 05:44 MPV 9.3 fL (7.4-11.0) 11/08/24 05:44 Neut % (Auto) 62.0 % (42.0-75.0) 11/08/24 05:44 Lymph % (Auto) 24.7 % (21.0-51.0) 11/08/24 05:44 [place] % (Auto) 10.3 % (0.0-13.0) 11/08/24 05:44 Eos % (Auto) 2.3 % (0.9-2.9) 11/08/24 05:44 Baso % (Auto) 0.7 % (0.2-1.0) 11/08/24 05:44 Neut # (Auto) 3.7 x10^3/uL (2.2-4.8) 11/08/24 05:44 Lymph # (Auto) 1.5 X10^3/uL (1.3-2.9) 11/08/24 05:44 [place] # (Auto) 0.6 x10^3/uL (0.3-0.8) 11/08/24 05:44 Eos # (Auto) 0.1 x10^3/uL (0.0-0.2) 11/08/24 05:44 Baso # (Auto) 0.0 X10^3/uL (0.0-0.1) 11/08/24 05:44 Absolute Nucleated RBC 0.4 /100WBC 11/08/24 05:44 Sodium 138 mmol/L (136-145) 11/08/24 05:44 Corrected Sodium 141 mmol/L (136-145) 11/08/24 05:44 Potassium 4.0 mmol/L (3.5-5.1) 11/08/24 05:44 Chloride 103 mmol/L (98-107) 11/08/24 05:44 Carbon Dioxide 31.0 mmol/L (21-32) 11/08/24 05:44 BUN 26 mg/dL (7-18) H 11/08/24 05:44 Creatinine 1.81 mg/dL (0.70-1.30) H 11/08/24 05:44 Est GFR (MDRD) Af Amer 47 (>60) L 11/08/24 05:44 Est GFR (MDRD) Non-Af 39 (>60) L 11/08/24 05:44 Glucose 210 mg/dL (65-99) H 11/08/24 05:44 POC Glucose (mg/dL) 219 mg/dL (65-99) H 11/08/24 04:47 Calcium 8.5 mg/dL (8.5-10.1) 11/08/24 05:44 Corrected Calcium 9.5 mg/dL (8.5-10.1) 11/08/24 05:44 Magnesium 2.0 mg/dL (2.0-2.9) 11/08/24 05:44 Total Bilirubin 1.60 mg/dL (0.2-1.0) H 11/08/24 05:44 AST 265 Units/L (15-37) H 11/08/24 05:44 ALT 529 Units/L (12-78) H 11/08/24 05:44 Alkaline Phosphatase 223 Units/L (46-116) H 11/08/24 05:44 B-Natriuretic Peptide 1760 pg/mL (0-79) H 11/07/24 06:25 Total Protein 6.4 g/dL (6.4-8.2) 11/08/24 05:44 Albumin 2.7 g/dL (3.4-5.0) L 11/08/24 05:44 Globulin 3.7 g/dL (2.5-4.5) 11/08/24 05:44 Albumin/Globulin Ratio 0.7 Ratio (1.1-2.1) L 11/08/24 05:44 Amylase 63 Units/L (25-115) 11/04/24 10:35 Lipase 17 Units/L (16-77) 11/04/24 10:35 Total PSA 0.70 ng/mL (0.13-4.0) 11/06/24 06:05 Specimen Type Clean catch urine 11/04/24 13:19 Urine Color Dark yellow (YELLOW) 11/04/24 13:19 Urine Appearance Hazy (CLEAR) 11/04/24 13:19 Urine pH 5.0 (5.0 - 8.0) 11/04/24 13:19 Ur Specific [place] 1.010 (1.000-1.030) 11/04/24 13:19 Urine Protein 3+ (NEGATIVE) 11/04/24 13:19 Urine Glucose (UA) Negative (NEGATIVE) 11/04/24 13:19 Urine Ketones Negative (NEGATIVE) 11/04/24 13:19 Urine Blood 1+ (NEGATIVE) 11/04/24 13:19 Urine Nitrite Positive (NEGATIVE) 11/04/24 13:19 Urine Bilirubin Negative (NEGATIVE) 11/04/24 13:19 Urine Urobilinogen 1+ (NORMAL) 11/04/24 13:19 Ur Leukocyte Esterase 3+ (NEGATIVE) 11/04/24 13:19 Urine RBC 3-5 /HPF (0-3) A 11/04/24 13:19 Urine WBC 10-20 /HPF (0-5) A 11/04/24 13:19 Ur Squamous Epith Cells Few /HPF (NEGATIVE) 11/04/24 13:19 Amorphous Sediment 1+ /HPF (NEGATIVE) 11/04/24 13:19 Urine Bacteria 2+ /HPF (NEGATIVE) 11/04/24 13:19 Ur Culture Indicated? Yes/culture set up 11/04/24 13:19 SARS-CoV-2 (PCR) Negative (NEGATIVE) 11/06/24 13:20 Influenza Type A (PCR) Negative (NEGATIVE) 11/06/24 13:20 Influenza Type B (PCR) Negative (NEGATIVE) 11/06/24 13:20 RSV (PCR) Negative (NEGATIVE) 11/06/24 13:20 Plan (1) Transaminitis: Status: Acute (2) Thickening of wall of gallbladder: Status: Acute (3) New onset atrial fibrillation: Status: Acute (4) CHF exacerbation: Status: Acute Qualifiers: Heart failure type: unspecified Qualified Code(s): I50.9 - Heart failure, unspecified (5) Acute UTI: Status: Acute (6) Mixed hyperlipidemia: Status: Chronic (7) Hypertension: Status: Chronic Qualifiers: Hypertension type: primary hypertension Qualified Code(s): I10 - Essential (primary) hypertension (8) Type 2 diabetes mellitus: Status: Chronic Qualifiers: Diabetes mellitus complication status: with other specified complication Diabetes mellitus half-way insulin use: without half-way use Qualified Code(s): E11.69 - Type 2 diabetes mellitus with other specified complication
--- NOTE | 2024-11-08 15:54 | DR.PROGNOT ---
HOSPITAL PROGRESS NOTE Progress Note for Day of: Progress Note Date: 11/08/24 Chief Complaint Chief Complaint: Patient denies any abdominal pain, no nausea or vomiting, tolerating diet. BUN 26, creatinine 1.8, bilirubin down to 1.6, alkaline phosphatase still elevated to 23, ALT 529 and AST 265. Patient is afebrile 98.4. With the persistent elevated liver enzymes and bilirubin will obtain MRCP to rule out common bile duct stones. Past Medical Family Social History Allergies: Allergies No Known Drug Allergies (NKDA) Allergy (Unknown, Verified 11/04/24 12:00) Review Of Systems Changes in ROS: see HPI Vital Signs Vital Signs: Vital Signs Temperature 98.4 F Temperature 97.5 F Pulse Rate 69 Pulse Rate 75 Pulse Rate 76 Pulse Rate 80 Pulse Rate 78 Pulse Rate 77 Blood Pressure 97/57 Blood Pressure 114/71 O2 Sat by Pulse Oximetry 100 O2 Sat by Pulse Oximetry 98 O2 Sat by Pulse Oximetry 100 O2 Sat by Pulse Oximetry 99 O2 Sat by Pulse Oximetry 99 O2 Sat by Pulse Oximetry 98 Physical Exam Oriented: Normal Eyes: Normal Ear: Normal Nose: Normal Throat: Normal Respiratory: Normal Cardiovascular: Irregular : Normal GI:Auscultation: Normal GI:Palpation: Normal GI: Tenderness: Normal Skin: Normal Musculoskeletal: Normal Psychiatric: Normal Mood Description: Calm and Appropriate Affect: Normal Speech Pattern: Clear and Appropriate Laboratory and Diagnostics 11/08/24 05:44 11/08/24 05:44 Labs: 11/04/24 13:19 Urine,Clean Catch Urine Culture - Final Escherichia Coli Laboratory WBC 6.0 X10^3/uL (3.6-10.0) 11/08/24 05:44 RBC 4.97 X10^6/uL (4.7-6.0) 11/08/24 05:44 Hgb 12.7 g/dL (13.5-18.0) L 11/08/24 05:44 Hct 40.1 % (42.0-54.0) L 11/08/24 05:44 MCV 80.7 fL (80.0-100.0) 11/08/24 05:44 MCH 25.5 pg (27.0-34.0) L 11/08/24 05:44 MCHC 31.6 g/dL (33.0-35.0) L 11/08/24 05:44 RDW 16.9 % (11.6-16.5) H 11/08/24 05:44 Plt Count 141 X10^3/uL (150.0-450.0) L 11/08/24 05:44 MPV 9.3 fL (7.4-11.0) 11/08/24 05:44 Neut % (Auto) 62.0 % (42.0-75.0) 11/08/24 05:44 Lymph % (Auto) 24.7 % (21.0-51.0) 11/08/24 05:44 [place] % (Auto) 10.3 % (0.0-13.0) 11/08/24 05:44 Eos % (Auto) 2.3 % (0.9-2.9) 11/08/24 05:44 Baso % (Auto) 0.7 % (0.2-1.0) 11/08/24 05:44 Neut # (Auto) 3.7 x10^3/uL (2.2-4.8) 11/08/24 05:44 Lymph # (Auto) 1.5 X10^3/uL (1.3-2.9) 11/08/24 05:44 [place] # (Auto) 0.6 x10^3/uL (0.3-0.8) 11/08/24 05:44 Eos # (Auto) 0.1 x10^3/uL (0.0-0.2) 11/08/24 05:44 Baso # (Auto) 0.0 X10^3/uL (0.0-0.1) 11/08/24 05:44 Absolute Nucleated RBC 0.4 /100WBC 11/08/24 05:44 Sodium 138 mmol/L (136-145) 11/08/24 05:44 Corrected Sodium 141 mmol/L (136-145) 11/08/24 05:44 Potassium 4.0 mmol/L (3.5-5.1) 11/08/24 05:44 Chloride 103 mmol/L (98-107) 11/08/24 05:44 Carbon Dioxide 31.0 mmol/L (21-32) 11/08/24 05:44 BUN 26 mg/dL (7-18) H 11/08/24 05:44 Creatinine 1.81 mg/dL (0.70-1.30) H 11/08/24 05:44 Est GFR (MDRD) Af Amer 47 (>60) L 11/08/24 05:44 Est GFR (MDRD) Non-Af 39 (>60) L 11/08/24 05:44 Glucose 210 mg/dL (65-99) H 11/08/24 05:44 POC Glucose (mg/dL) 220 mg/dL (65-99) H 11/08/24 10:39 Calcium 8.5 mg/dL (8.5-10.1) 11/08/24 05:44 Corrected Calcium 9.5 mg/dL (8.5-10.1) 11/08/24 05:44 Magnesium 2.0 mg/dL (2.0-2.9) 11/08/24 05:44 Total Bilirubin 1.60 mg/dL (0.2-1.0) H 11/08/24 05:44 AST 265 Units/L (15-37) H 11/08/24 05:44 ALT 529 Units/L (12-78) H 11/08/24 05:44 Alkaline Phosphatase 223 Units/L (46-116) H 11/08/24 05:44 B-Natriuretic Peptide 1760 pg/mL (0-79) H 11/07/24 06:25 Total Protein 6.4 g/dL (6.4-8.2) 11/08/24 05:44 Albumin 2.7 g/dL (3.4-5.0) L 11/08/24 05:44 Globulin 3.7 g/dL (2.5-4.5) 11/08/24 05:44 Albumin/Globulin Ratio 0.7 Ratio (1.1-2.1) L 11/08/24 05:44 Amylase 63 Units/L (25-115) 11/04/24 10:35 Lipase 17 Units/L (16-77) 11/04/24 10:35 Total PSA 0.70 ng/mL (0.13-4.0) 11/06/24 06:05 Specimen Type Clean catch urine 11/04/24 13:19 Urine Color Dark yellow (YELLOW) 11/04/24 13:19 Urine Appearance Hazy (CLEAR) 11/04/24 13:19 Urine pH 5.0 (5.0 - 8.0) 11/04/24 13:19 Ur Specific [place] 1.010 (1.000-1.030) 11/04/24 13:19 Urine Protein 3+ (NEGATIVE) 11/04/24 13:19 Urine Glucose (UA) Negative (NEGATIVE) 11/04/24 13:19 Urine Ketones Negative (NEGATIVE) 11/04/24 13:19 Urine Blood 1+ (NEGATIVE) 11/04/24 13:19 Urine Nitrite Positive (NEGATIVE) 11/04/24 13:19 Urine Bilirubin Negative (NEGATIVE) 11/04/24 13:19 Urine Urobilinogen 1+ (NORMAL) 11/04/24 13:19 Ur Leukocyte Esterase 3+ (NEGATIVE) 11/04/24 13:19 Urine RBC 3-5 /HPF (0-3) A 11/04/24 13:19 Urine WBC 10-20 /HPF (0-5) A 11/04/24 13:19 Ur Squamous Epith Cells Few /HPF (NEGATIVE) 11/04/24 13:19 Amorphous Sediment 1+ /HPF (NEGATIVE) 11/04/24 13:19 Urine Bacteria 2+ /HPF (NEGATIVE) 11/04/24 13:19 Ur Culture Indicated? Yes/culture set up 11/04/24 13:19 SARS-CoV-2 (PCR) Negative (NEGATIVE) 11/06/24 13:20 Influenza Type A (PCR) Negative (NEGATIVE) 11/06/24 13:20 Influenza Type B (PCR) Negative (NEGATIVE) 11/06/24 13:20 RSV (PCR) Negative (NEGATIVE) 11/06/24 13:20 Assessment and Plan 1: Liver dysfunction, possible common bile duct stones. To obtain MRCP. 2: Diabetes mellitus. Same treatment plan 3: A-fib. Same plan as per Dr. Mckinnon Problem Patient Problems: Patient Problems CHF exacerbation (Acute) I50.9 New onset atrial fibrillation (Acute) I48.91 Acute UTI (Acute) N39.0
[2024-11-09 09:25] LABS: MEAN PLATELET VOLUME 9.4 fL (7.4-11.0); RED CELL DISTRIBUTION WIDTH 16.9 % (11.6-16.5)
[2024-11-09 09:38] LABS: COR CA(FOR HYPOALB) 9.6 mg/dL (8.5-10.1); COR NA(FOR HYPERGLY) 140.0 mmol/L (136-145); CREATININE 1.51 mg/dL (0.70-1.30); eGFR NON BLACK RACES 48.0 (>60)
--- NOTE | 2024-11-09 14:40 | PCM.PROG ---
Progress Note Progress Note for Day of Date of Exam: 11/09/24 Subjective Subjective: Patient seen at bedside, no acute events overnight. He is feeling better. He will be having MRCP today. He is currently admitted for atrial fibrillation with RVR, CHF exacerbation and UTI. He is on IV Rocephin. He did have elevated liver enzymes and gallbladder ultrasound showed some gallbladder thickening. Dr. Alfaro has been consulted. Patient denies abdominal pain, nausea or vomiting. Labs/imaging reviewed: - WBC 8.5 hemoglobin 12.3 platelet 150 potassium 4 creatinine 1.51 - AST 265 ALT 529 alk phos 223 - Urine culture E. coli - Chest x-ray: Pulmonary edema - Echocardiogram Plan: Continue telemetry, monitor blood pressure and heart rate. Follow MRCP results. Continue current medications. Continue Rocephin. Replace electrolytes as per protocol. Follow echo results. Follow surgery recommendations. Continue home medications. Monitor a.m. labs and imaging. Past Medical Family Social History Allergies: Allergies No Known Drug Allergies (NKDA) Allergy (Unknown, Verified 11/04/24 12:00) Vital Signs and I&O's Vital Signs: Vital Signs Temperature 98.4 F Temperature 98.4 F Pulse Rate 84 Pulse Rate 86 Pulse Rate 83 Pulse Rate 79 Blood Pressure 119/77 O2 Sat by Pulse Oximetry 98 O2 Sat by Pulse Oximetry 96 O2 Sat by Pulse Oximetry 94 O2 Sat by Pulse Oximetry 98 Intake and Output: Intake & Output 11/06/24 11/07/24 11/08/24 11/09/24 23:59 23:59 23:59 23:59 Intake Total 1010 / 1010 1367 / 1367 1521 / 1521 200 / 200 Output Total 200 / 200 550 / 550 701 / 701 Balance 810 / 810 817 / 817 820 / 820 200 / 200 Physical Exam Oriented: Normal Eyes: Normal Ear: Normal Nose: Normal Throat: Normal Respiratory: Normal Cardiovascular: Normal Auscultation: Bowel Sounds: Normal Palpation: Normal Tenderness: Normal Skin: Normal Musculoskeletal: Normal Psychiatric: Normal Mood Description: Calm and Appropriate Affect: Normal Speech Pattern: Clear and Appropriate Laboratory and Diagnostics 11/09/24 09:14 11/09/24 09:14 Labs: 11/04/24 13:19 Urine,Clean Catch Urine Culture - Final Escherichia Coli Laboratory WBC 8.5 X10^3/uL (3.6-10.0) 11/09/24 09:14 RBC 4.76 X10^6/uL (4.7-6.0) 11/09/24 09:14 Hgb 12.3 g/dL (13.5-18.0) L 11/09/24 09:14 Hct 38.4 % (42.0-54.0) L 11/09/24 09:14 MCV 80.7 fL (80.0-100.0) 11/09/24 09:14 MCH 25.9 pg (27.0-34.0) L 11/09/24 09:14 MCHC 32.1 g/dL (33.0-35.0) L 11/09/24 09:14 RDW 16.9 % (11.6-16.5) H 11/09/24 09:14 Plt Count 150 X10^3/uL (150.0-450.0) 11/09/24 09:14 MPV 9.4 fL (7.4-11.0) 11/09/24 09:14 Neut % (Auto) 75.8 % (42.0-75.0) H 11/09/24 09:14 Lymph % (Auto) 14.9 % (21.0-51.0) L 11/09/24 09:14 [place] % (Auto) 7.8 % (0.0-13.0) 11/09/24 09:14 Eos % (Auto) 0.4 % (0.9-2.9) L 11/09/24 09:14 Baso % (Auto) 1.1 % (0.2-1.0) H 11/09/24 09:14 Neut # (Auto) 6.4 x10^3/uL (2.2-4.8) H 11/09/24 09:14 Lymph # (Auto) 1.3 X10^3/uL (1.3-2.9) 11/09/24 09:14 [place] # (Auto) 0.7 x10^3/uL (0.3-0.8) 11/09/24 09:14 Eos # (Auto) 0.0 x10^3/uL (0.0-0.2) 11/09/24 09:14 Baso # (Auto) 0.1 X10^3/uL (0.0-0.1) 11/09/24 09:14 Absolute Nucleated RBC 0.1 /100WBC 11/09/24 09:14 Sodium 138 mmol/L (136-145) 11/09/24 09:14 Corrected Sodium 140 mmol/L (136-145) 11/09/24 09:14 Potassium 4.0 mmol/L (3.5-5.1) 11/09/24 09:14 Chloride 104 mmol/L (98-107) 11/09/24 09:14 Carbon Dioxide 28.6 mmol/L (21-32) 11/09/24 09:14 BUN 21 mg/dL (7-18) H 11/09/24 09:14 Creatinine 1.51 mg/dL (0.70-1.30) H 11/09/24 09:14 Est GFR (MDRD) Af Amer 58 (>60) L 11/09/24 09:14 Est GFR (MDRD) Non-Af 48 (>60) L 11/09/24 09:14 Glucose 181 mg/dL (65-99) H 11/09/24 09:14 POC Glucose (mg/dL) 185 mg/dL (65-99) H 11/09/24 13:56 Calcium 8.6 mg/dL (8.5-10.1) 11/09/24 09:14 Corrected Calcium 9.6 mg/dL (8.5-10.1) 11/09/24 09:14 Magnesium 2.0 mg/dL (2.0-2.9) 11/09/24 09:14 Total Bilirubin 1.70 mg/dL (0.2-1.0) H 11/09/24 09:14 AST 127 Units/L (15-37) H 11/09/24 09:14 ALT 383 Units/L (12-78) H 11/09/24 09:14 Alkaline Phosphatase 237 Units/L (46-116) H 11/09/24 09:14 B-Natriuretic Peptide 1760 pg/mL (0-79) H 11/07/24 06:25 Total Protein 6.6 g/dL (6.4-8.2) 11/09/24 09:14 Albumin 2.8 g/dL (3.4-5.0) L 11/09/24 09:14 Globulin 3.8 g/dL (2.5-4.5) 11/09/24 09:14 Albumin/Globulin Ratio 0.7 Ratio (1.1-2.1) L 11/09/24 09:14 Amylase 63 Units/L (25-115) 11/04/24 10:35 Lipase 17 Units/L (16-77) 11/04/24 10:35 Total PSA 0.70 ng/mL (0.13-4.0) 11/06/24 06:05 Specimen Type Clean catch urine 11/04/24 13:19 Urine Color Dark yellow (YELLOW) 11/04/24 13:19 Urine Appearance Hazy (CLEAR) 11/04/24 13:19 Urine pH 5.0 (5.0 - 8.0) 11/04/24 13:19 Ur Specific [place] 1.010 (1.000-1.030) 11/04/24 13:19 Urine Protein 3+ (NEGATIVE) 11/04/24 13:19 Urine Glucose (UA) Negative (NEGATIVE) 11/04/24 13:19 Urine Ketones Negative (NEGATIVE) 11/04/24 13:19 Urine Blood 1+ (NEGATIVE) 11/04/24 13:19 Urine Nitrite Positive (NEGATIVE) 11/04/24 13:19 Urine Bilirubin Negative (NEGATIVE) 11/04/24 13:19 Urine Urobilinogen 1+ (NORMAL) 11/04/24 13:19 Ur Leukocyte Esterase 3+ (NEGATIVE) 11/04/24 13:19 Urine RBC 3-5 /HPF (0-3) A 11/04/24 13:19 Urine WBC 10-20 /HPF (0-5) A 11/04/24 13:19 Ur Squamous Epith Cells Few /HPF (NEGATIVE) 11/04/24 13:19 Amorphous Sediment 1+ /HPF (NEGATIVE) 11/04/24 13:19 Urine Bacteria 2+ /HPF (NEGATIVE) 11/04/24 13:19 Ur Culture Indicated? Yes/culture set up 11/04/24 13:19 SARS-CoV-2 (PCR) Negative (NEGATIVE) 11/06/24 13:20 Influenza Type A (PCR) Negative (NEGATIVE) 11/06/24 13:20 Influenza Type B (PCR) Negative (NEGATIVE) 11/06/24 13:20 RSV (PCR) Negative (NEGATIVE) 11/06/24 13:20 Plan (1) Transaminitis: Status: Acute (2) Thickening of wall of gallbladder: Status: Acute (3) New onset atrial fibrillation: Status: Acute (4) CHF exacerbation: Status: Acute Qualifiers: Heart failure type: unspecified Qualified Code(s): I50.9 - Heart failure, unspecified (5) Acute UTI: Status: Acute (6) Mixed hyperlipidemia: Status: Chronic (7) Hypertension: Status: Chronic Qualifiers: Hypertension type: primary hypertension Qualified Code(s): I10 - Essential (primary) hypertension (8) Type 2 diabetes mellitus: Status: Chronic Qualifiers: Diabetes mellitus complication status: with other specified complication Diabetes mellitus care home insulin use: without manager long term care use Qualified Code(s): E11.69 - Type 2 diabetes mellitus with other specified complication
--- NOTE | 2024-11-09 17:04 | MRI ---
EXAM: MRCP HISTORY: possible stones in duct; COMPARISON: Gallbladder U/S 11/05/2024 TECHNIQUE: Multiplanar multisequence MRI of the abdomen was obtained without contrast. MRCP protocol was used. FINDINGS: Cardiomegaly is present. Small right and trace left pleural effusions are present. Intrahepatic and extrahepatic biliary tree are nondilated. I see no evidence for choledocholithiasis. Pancreatic duct is not dilated. There are abnormal filling defects in the gallbladder consistent with cholelithiasis. No obvious wall thickening or pericholecystic fluid. There is minimal perihepatic ascites. Liver has normal size and signal intensity. No evidence for steatosis. Spleen, adrenal glands, and pancreas are unremarkable. Mass in the right kidney follows water signal consistent with a cyst. Otherwise kidneys have normal size and signal intensity. The bowel loops are not dilated. IMPRESSION: 1. No evidence for choledocholithiasis or biliary obstruction 2. Cholelithiasis 3. Bilateral effusions, right larger than left 4. Minimal perihepatic ascites 5. Cardiomegaly THIS IS AN ELECTRONICALLY VERIFIED FINAL REPORT 11/09/2024 5:01 PM - Electronically signed by Ramy Gao MD
[2024-11-10 05:53] LABS: MEAN PLATELET VOLUME 9.7 fL (7.4-11.0); RED CELL DISTRIBUTION WIDTH 16.3 % (11.6-16.5)
[2024-11-10 06:19] LABS: COR CA(FOR HYPOALB) 9.7 mg/dL (8.5-10.1); COR NA(FOR HYPERGLY) 141.0 mmol/L (136-145); CREATININE 1.51 mg/dL (0.70-1.30); eGFR NON BLACK RACES 48.0 (>60)
[2024-11-10 07:36] VITALS: TEMP 97.8
[2024-11-10] MEDS: NS IV PRN (07:50)
[2024-11-10] MEDS: DIPRIVAN IVP PRN (07:59)
[2024-11-10] MEDS ORDERED: XYLOCAINE 2 % (PLAIN) PRN (07:59)
[2024-11-10] MEDS: DIPRIVAN VIAL 20 ML ONE (08:27)
[2024-11-10] MEDS: NS 500 ML IV 500 ML IV ONE (08:27)
[2024-11-10 09:01] VITALS: RESP 20
[2024-11-10 09:20] VITALS: BP 121/80; PULSE 82; O2SAT 95
--- NOTE | 2024-11-16 10:52 | W.DIS.FURT ---
Summary of Discharge Discharge Summary of Date Date of Exam: 11/10/24 Admission Date Date of Admission: 11/04/24 Admission Diagnosis Patient Problems (Updated 11/08/24 @ 10:25 by Donna Nascimento MD) CHF exacerbation (Acute) I50.9 New onset atrial fibrillation (Acute) I48.91 Acute UTI (Acute) N39.0 Hospital Course: Patient is a 79-year-old male with a past medical history of hypertension, diabetes, CKD, GERD, presenting with generalized weakness and having hiccups. He has difficulty explaining exactly how he is feeling. He denies having chest pain or feeling really short of breath. Denies fevers or chills. Reports some urinary frequency but denies dysuria. Labs/imaging: WBC 4.8, hemoglobin 12.2, platelets 166, sodium 139, potassium 3.4, creatinine 1.57, glucose 195, BNP 1640, UA consistent with infection, urine culture pending. CT abdomen pelvis was obtained that revealed mild diffuse urinary bladder wall thickening may be secondary to under distention or cystitis. Cardiomegaly with small pleural effusions right greater than left. Patient was also noted to have atrial fibrillation in the ER. He denies any history of that diagnosis. He was treated with IV metoprolol and had responded. Patient was admitted for atrial fibrillation with RVR, CHF exacerbation, and acute cystitis. He was started on IV antibiotics Rocephin. He was also given IV Lasix 20 mg x 1. He was admitted to the ICU for closer monitoring. He was started on Eliquis. His rate was well-controlled. Echocardiogram was done.His labs are monitored daily and electrolytes replaced as needed.His labs showed elevated LFTs and bilirubin. Patient had reported occasional nausea, vomiting and weight loss. Dr. Lara was consulted.He had gallbladder ultrasound and MRCP done which showed chronic cholelithiasis. Patient underwent EGD due to anemia and positive Hemoccult. It showed small hiatal hernia and gastritis. His labs improved, LFTs trended down. He was ambulating in the room and tolerating p.o. intake. He was stable for discharge home and will follow-up with general surgery and PCP. He will also need to follow-up with cardiology. Vital Signs: Vital Signs (72 hours) 11/07/24 10:00 11/07/24 10:32 11/07/24 11:00 Temperature Pulse Rate 75 73 Pulse Rate [Bilateral Radial] Respiratory Rate Blood Pressure Blood Pressure [Right Arm] O2 Sat by Pulse Oximetry 95 98 Oxygen Delivery Method Room Air Oxygen Flow Rate FIO2% 11/07/24 11:03 11/07/24 11:03 11/07/24 11:03 Temperature Pulse Rate 71 Pulse Rate [Bilateral Radial] Respiratory Rate Blood Pressure 121/76 121/76 Blood Pressure [Right Arm] O2 Sat by Pulse Oximetry 91 L Oxygen Delivery Method Oxygen Flow Rate FIO2% 11/07/24 12:00 11/07/24 12:00 11/07/24 13:00 Temperature Pulse Rate 69 75 Pulse Rate [Bilateral Radial] Respiratory Rate Blood Pressure 115/64 Blood Pressure [Right Arm] O2 Sat by Pulse Oximetry 96 88 L Oxygen Delivery Method Oxygen Flow Rate FIO2% 11/07/24 14:00 11/07/24 15:00 11/07/24 15:59 Temperature Pulse Rate 74 82 78 Pulse Rate [Bilateral Radial] Respiratory Rate Blood Pressure Blood Pressure [Right Arm] O2 Sat by Pulse Oximetry 97 92 L 96 Oxygen Delivery Method Oxygen Flow Rate FIO2% 11/07/24 15:59 11/07/24 16:00 11/07/24 16:00 Temperature 98.0 F Pulse Rate 78 Pulse Rate [Bilateral Radial] Respiratory Rate Blood Pressure 120/74 113/76 Blood Pressure [Right Arm] O2 Sat by Pulse Oximetry 93 L Oxygen Delivery Method Oxygen Flow Rate FIO2% 11/07/24 19:00 11/07/24 19:33 11/07/24 20:00 Temperature 97.5 F L Pulse Rate 81 Pulse Rate [Bilateral Radial] Respiratory Rate 22 Blood Pressure 106/67 Blood Pressure [Right Arm] O2 Sat by Pulse Oximetry 97 Oxygen Delivery Method Room Air Room Air Oxygen Flow Rate FIO2% 11/08/24 00:00 11/08/24 04:00 11/08/24 07:00 Temperature 97.5 F L 97.7 F Pulse Rate 71 69 70 Pulse Rate [Bilateral Radial] Respiratory Rate 20 18 Blood Pressure 97/63 96/57 Blood Pressure [Right Arm] O2 Sat by Pulse Oximetry 94 L 95 98 Oxygen Delivery Method Oxygen Flow Rate FIO2% 11/08/24 07:00 11/08/24 08:00 11/08/24 08:01 Temperature Pulse Rate 77 Pulse Rate [Bilateral Radial] Respiratory Rate Blood Pressure 114/71 Blood Pressure [Right Arm] O2 Sat by Pulse Oximetry 98 Oxygen Delivery Method Room Air Oxygen Flow Rate FIO2% 11/08/24 08:01 11/08/24 09:00 11/08/24 10:00 Temperature 97.5 F L Pulse Rate 78 80 76 Pulse Rate [Bilateral Radial] Respiratory Rate Blood Pressure Blood Pressure [Right Arm] O2 Sat by Pulse Oximetry 99 99 100 Oxygen Delivery Method Oxygen Flow Rate FIO2% 11/08/24 10:06 11/08/24 11:00 11/08/24 12:00 Temperature Pulse Rate 75 69 Pulse Rate [Bilateral Radial] Respiratory Rate Blood Pressure Blood Pressure [Right Arm] O2 Sat by Pulse Oximetry 98 100 Oxygen Delivery Method Room Air Oxygen Flow Rate FIO2% 11/08/24 12:00 11/08/24 13:00 11/08/24 14:00 Temperature 98.4 F Pulse Rate 72 75 Pulse Rate [Bilateral Radial] Respiratory Rate Blood Pressure 97/57 Blood Pressure [Right Arm] O2 Sat by Pulse Oximetry 91 L 96 Oxygen Delivery Method Oxygen Flow Rate FIO2% 11/08/24 15:00 11/08/24 16:00 11/08/24 16:00 Temperature 97.8 F Pulse Rate 75 79 Pulse Rate [Bilateral Radial] Respiratory Rate Blood Pressure 105/62 Blood Pressure [Right Arm] O2 Sat by Pulse Oximetry 100 95 Oxygen Delivery Method Oxygen Flow Rate FIO2% 11/08/24 17:00 11/08/24 18:00 11/08/24 19:00 Temperature Pulse Rate 85 87 Pulse Rate [Bilateral Radial] Respiratory Rate Blood Pressure Blood Pressure [Right Arm] O2 Sat by Pulse Oximetry 99 95 Oxygen Delivery Method Room Air Oxygen Flow Rate FIO2% 11/08/24 19:00 11/08/24 20:00 11/08/24 20:00 Temperature 97.8 F Pulse Rate 91 H 112 H 117 H Pulse Rate [Bilateral Radial] Respiratory Rate 18 Blood Pressure 93/59 Blood Pressure [Right Arm] O2 Sat by Pulse Oximetry 98 93 L 96 Oxygen Delivery Method Room Air Oxygen Flow Rate FIO2% 11/08/24 20:43 11/08/24 20:43 11/08/24 21:00 Temperature Pulse Rate 112 H 111 H Pulse Rate [Bilateral Radial] Respiratory Rate Blood Pressure 93/59 Blood Pressure [Right Arm] O2 Sat by Pulse Oximetry 93 L 94 L Oxygen Delivery Method Oxygen Flow Rate FIO2% 11/08/24 21:20 11/08/24 22:00 11/08/24 22:59 Temperature Pulse Rate 113 H 110 H Pulse Rate [Bilateral Radial] Respiratory Rate Blood Pressure Blood Pressure [Right Arm] O2 Sat by Pulse Oximetry 97 97 Oxygen Delivery Method Room Air Oxygen Flow Rate FIO2% 11/09/24 00:00 11/09/24 00:00 11/09/24 01:59 Temperature 98.1 F Pulse Rate 116 H 113 H Pulse Rate [Bilateral Radial] Respiratory Rate 18 Blood Pressure 91/52 91/52 Blood Pressure [Right Arm] O2 Sat by Pulse Oximetry 94 L 92 L Oxygen Delivery Method Room Air Oxygen Flow Rate FIO2% 11/09/24 02:00 11/09/24 04:00 11/09/24 04:18 Temperature 98.0 F Pulse Rate 113 H 86 86 Pulse Rate [Bilateral Radial] Respiratory Rate 15 Blood Pressure 110/65 Blood Pressure [Right Arm] O2 Sat by Pulse Oximetry 95 98 93 L Oxygen Delivery Method Room Air Oxygen Flow Rate FIO2% 11/09/24 04:18 11/09/24 05:00 11/09/24 06:00 Temperature Pulse Rate 87 83 Pulse Rate [Bilateral Radial] Respiratory Rate Blood Pressure 110/65 Blood Pressure [Right Arm] O2 Sat by Pulse Oximetry 97 97 Oxygen Delivery Method Oxygen Flow Rate FIO2% 11/09/24 07:00 11/09/24 07:00 11/09/24 08:00 Temperature 98.4 F 98.4 F Pulse Rate 79 Pulse Rate [Bilateral Radial] Respiratory Rate Blood Pressure 119/77 Blood Pressure [Right Arm] O2 Sat by Pulse Oximetry 98 Oxygen Delivery Method Room Air Oxygen Flow Rate FIO2% 11/09/24 08:00 11/09/24 09:00 11/09/24 09:32 Temperature Pulse Rate 83 86 Pulse Rate [Bilateral Radial] Respiratory Rate Blood Pressure Blood Pressure [Right Arm] O2 Sat by Pulse Oximetry 94 L 96 Oxygen Delivery Method Room Air Oxygen Flow Rate FIO2% 11/09/24 10:00 11/09/24 10:01 11/09/24 13:00 Temperature 97.5 F L Pulse Rate 84 Pulse Rate [Bilateral Radial] Respiratory Rate Blood Pressure Blood Pressure [Right Arm] O2 Sat by Pulse Oximetry 98 88 L Oxygen Delivery Method Oxygen Flow Rate FIO2% 11/09/24 14:31 11/09/24 15:00 11/09/24 17:30 Temperature 97.8 F 97.8 F Pulse Rate Pulse Rate [Bilateral Radial] Respiratory Rate Blood Pressure 109/68 122/81 Blood Pressure [Right Arm] O2 Sat by Pulse Oximetry Oxygen Delivery Method Oxygen Flow Rate FIO2% 11/09/24 19:00 11/09/24 20:00 11/09/24 21:29 Temperature 98.4 F Pulse Rate 94 H Pulse Rate [Bilateral Radial] Respiratory Rate 16 Blood Pressure 107/66 Blood Pressure [Right Arm] O2 Sat by Pulse Oximetry 98 Oxygen Delivery Method Room Air Room Air Room Air Oxygen Flow Rate FIO2% 21 11/10/24 00:00 11/10/24 04:00 11/10/24 07:00 Temperature 98.1 F 97.7 F Pulse Rate 82 75 Pulse Rate [Bilateral Radial] Respiratory Rate 20 18 Blood Pressure 111/71 97/57 Blood Pressure [Right Arm] O2 Sat by Pulse Oximetry 97 98 Oxygen Delivery Method Room Air Room Air Room Air Oxygen Flow Rate FIO2% 11/10/24 07:35 11/10/24 08:15 11/10/24 08:30 Temperature 97.8 F 97.8 F 97.8 F Pulse Rate 83 Pulse Rate [Bilateral Radial] 75 81 Respiratory Rate 19 24 20 Blood Pressure 123/65 Blood Pressure [Right Arm] 123/65 106/73 O2 Sat by Pulse Oximetry 92 L 92 L 97 Oxygen Delivery Method Room Air Oxygen Flow Rate FIO2% 11/10/24 08:45 11/10/24 09:00 11/10/24 09:00 Temperature 97.8 F 97.8 F Pulse Rate Pulse Rate [Bilateral Radial] 78 84 Respiratory Rate 20 20 Blood Pressure Blood Pressure [Right Arm] 119/78 119/81 O2 Sat by Pulse Oximetry 94 L 92 L Oxygen Delivery Method Nasal Cannula Oxygen Flow Rate 3 FIO2% 32 11/10/24 09:15 11/10/24 09:44 Temperature 97.8 F Pulse Rate Pulse Rate [Bilateral Radial] 82 Respiratory Rate 20 Blood Pressure Blood Pressure [Right Arm] 121/80 O2 Sat by Pulse Oximetry 95 Oxygen Delivery Method Room Air Oxygen Flow Rate FIO2% Labs: Laboratory Last Values WBC 6.9 X10^3/uL (3.6-10.0) 11/10/24 05:35 RBC 4.69 X10^6/uL (4.7-6.0) L 11/10/24 05:35 Hgb 12.2 g/dL (13.5-18.0) L 11/10/24 05:35 Hct 37.3 % (42.0-54.0) L 11/10/24 05:35 MCV 79.5 fL (80.0-100.0) L 11/10/24 05:35 MCH 26.0 pg (27.0-34.0) L 11/10/24 05:35 MCHC 32.7 g/dL (33.0-35.0) L 11/10/24 05:35 RDW 16.3 % (11.6-16.5) 11/10/24 05:35 Plt Count 146 X10^3/uL (150.0-450.0) L 11/10/24 05:35 MPV 9.7 fL (7.4-11.0) 11/10/24 05:35 Neut % (Auto) 73.1 % (42.0-75.0) 11/10/24 05:35 Lymph % (Auto) 17.1 % (21.0-51.0) L 11/10/24 05:35 Boyle % (Auto) 9.2 % (0.0-13.0) 11/10/24 05:35 Eos % (Auto) 0.3 % (0.9-2.9) L 11/10/24 05:35 Baso % (Auto) 0.3 % (0.2-1.0) 11/10/24 05:35 Neut # (Auto) 5.0 x10^3/uL (2.2-4.8) H 11/10/24 05:35 Lymph # (Auto) 1.2 X10^3/uL (1.3-2.9) L 11/10/24 05:35 Boyle # (Auto) 0.6 x10^3/uL (0.3-0.8) 11/10/24 05:35 Eos # (Auto) 0.0 x10^3/uL (0.0-0.2) 11/10/24 05:35 Baso # (Auto) 0.0 X10^3/uL (0.0-0.1) 11/10/24 05:35 Absolute Nucleated RBC 0.3 /100WBC 11/10/24 05:35 Sodium 137 mmol/L (136-145) 11/10/24 05:35 Corrected Sodium 141 mmol/L (136-145) 11/10/24 05:35 Potassium 4.3 mmol/L (3.5-5.1) 11/10/24 05:35 Chloride 101 mmol/L (98-107) 11/10/24 05:35 Carbon Dioxide 28.3 mmol/L (21-32) 11/10/24 05:35 BUN 20 mg/dL (7-18) H 11/10/24 05:35 Creatinine 1.51 mg/dL (0.70-1.30) H 11/10/24 05:35 Est GFR (MDRD) Af Amer 58 (>60) L 11/10/24 05:35 Est GFR (MDRD) Non-Af 48 (>60) L 11/10/24 05:35 Glucose 262 mg/dL (65-99) H 11/10/24 05:35 POC Glucose (mg/dL) 246 mg/dL (65-99) H 11/10/24 05:34 Calcium 8.8 mg/dL (8.5-10.1) 11/10/24 05:35 Corrected Calcium 9.7 mg/dL (8.5-10.1) 11/10/24 05:35 Magnesium 2.0 mg/dL (2.0-2.9) 11/09/24 09:14 Total Bilirubin 1.50 mg/dL (0.2-1.0) H 11/10/24 05:35 AST 93 Units/L (15-37) H 11/10/24 05:35 ALT 321 Units/L (12-78) H 11/10/24 05:35 Alkaline Phosphatase 237 Units/L (46-116) H 11/10/24 05:35 B-Natriuretic Peptide 1760 pg/mL (0-79) H 11/07/24 06:25 Total Protein 7.0 g/dL (6.4-8.2) 11/10/24 05:35 Albumin 2.9 g/dL (3.4-5.0) L 11/10/24 05:35 Globulin 4.1 g/dL (2.5-4.5) 11/10/24 05:35 Albumin/Globulin Ratio 0.7 Ratio (1.1-2.1) L 11/10/24 05:35 Amylase 63 Units/L (25-115) 11/04/24 10:35 Lipase 17 Units/L (16-77) 11/04/24 10:35 Total PSA 0.70 ng/mL (0.13-4.0) 11/06/24 06:05 Specimen Type Clean catch urine 11/04/24 13:19 Urine Color Dark yellow (YELLOW) 11/04/24 13:19 Urine Appearance Hazy (CLEAR) 11/04/24 13:19 Urine pH 5.0 (5.0 - 8.0) 11/04/24 13:19 Ur Specific Francis 1.010 (1.000-1.030) 11/04/24 13:19 Urine Protein 3+ (NEGATIVE) 11/04/24 13:19 Urine Glucose (UA) Negative (NEGATIVE) 11/04/24 13:19 Urine Ketones Negative (NEGATIVE) 11/04/24 13:19 Urine Blood 1+ (NEGATIVE) 11/04/24 13:19 Urine Nitrite Positive (NEGATIVE) 11/04/24 13:19 Urine Bilirubin Negative (NEGATIVE) 11/04/24 13:19 Urine Urobilinogen 1+ (NORMAL) 11/04/24 13:19 Ur Leukocyte Esterase 3+ (NEGATIVE) 11/04/24 13:19 Urine RBC 3-5 /HPF (0-3) A 11/04/24 13:19 Urine WBC 10-20 /HPF (0-5) A 11/04/24 13:19 Ur Squamous Epith Cells Few /HPF (NEGATIVE) 11/04/24 13:19 Amorphous Sediment 1+ /HPF (NEGATIVE) 11/04/24 13:19 Urine Bacteria 2+ /HPF (NEGATIVE) 11/04/24 13:19 Ur Culture Indicated? Yes/culture set up 11/04/24 13:19 SARS-CoV-2 (PCR) Negative (NEGATIVE) 11/06/24 13:20 Influenza Type A (PCR) Negative (NEGATIVE) 11/06/24 13:20 Influenza Type B (PCR) Negative (NEGATIVE) 11/06/24 13:20 RSV (PCR) Negative (NEGATIVE) 11/06/24 13:20 Reason For Visit: A-FIB, ELEVATED LIVER ENZYMES, UTI, CHF Discharge Diagnosis All Active Problems (Updated 11/08/24 @ 10:25 by Donna Nascimento MD) Thickening of wall of gallbladder (Acute) Transaminitis (Acute) CHF exacerbation (Acute) New onset atrial fibrillation (Acute) Acute UTI (Acute) Bilateral pleural effusion (Acute) Chronic gastroesophageal reflux disease (Acute) Colon cancer screening (Acute) Mixed hyperlipidemia (Chronic) Hypertension (Chronic) Type 2 diabetes mellitus (Chronic) GERD (gastroesophageal reflux disease) (Acute) Annual physical exam (Acute) Hiccups (Acute) Plan of Treatment: Continue with present treatment and follow up plan. Pt is to keep follow up appointment as instructed and take medications as ordered. Discharge Medications Discharge Medications: No Known Drug Allergies (NKDA) Allergy (Unknown, Verified 11/04/24 12:00) CONTINUE taking the following medications insulin NPH isoph U-100 human 100 unit/mL subcutaneous cartridge 7 unit subcut BID 11/04/24 [History] irbesartan 150 mg-hydrochlorothiazide 12.5 mg tablet 1 tab PO QDAY 11/04/24 [History] New Prescriptions apixaban 5 mg tablet (Eliquis) 5 mg PO BID 30 days #60 tabs 11/10/24 [Rx] ciprofloxacin HCl 500 mg tablet 500 mg PO Q12H 5 days #10 tabs 11/10/24 [Rx] Discharge Disposition Assessment: No distress noted at discharge. Discharge Disposition: home Discharge Condition: stable Discharge Plan Discharge Plan Hospital Course: Patient is a 79-year-old male with a past medical history of hypertension, diabetes, CKD, GERD, presenting with generalized weakness and having hiccups. He has difficulty explaining exactly how he is feeling. He denies having chest pain or feeling really short of breath. Denies fevers or chills. Reports some urinary frequency but denies dysuria. Labs/imaging: WBC 4.8, hemoglobin 12.2, platelets 166, sodium 139, potassium 3.4, creatinine 1.57, glucose 195, BNP 164 0, UA consistent with infection, urine culture pending. CT abdomen pelvis was obtained that revealed mild diffuse urinary bladder wall thickening may be secondary to under distention or cystitis. Cardiomegaly with small pleural effusions right greater than left. Patient was also noted to have atrial fibrillation in the ER. He denies any history of that diagnosis. He was treated with IV metoprolol and had responded. Patient was admitted for atrial fibrillation with RVR, CHF exacerbation, and acute cystitis. He was started on IV antibiotics Rocephin. He was also given IV Lasix 20 mg x 1. He was admitted to the ICU for closer monitoring. He was started on Eliquis. His rate was well-controlled. Echocardiogram was done.His labs are monitored daily and electrolytes replaced as needed.His labs showed elevated LFTs and bilirubin. Patient had reported occasional nausea, vomiting and weight loss. Dr. Lara was consulted.He had gallbladder ultrasound and MRCP done which showed chronic cholelithiasis. Patient underwent EGD due to anemia and positive Hemoccult. It showed small hiatal hernia and gastritis. His labs improved, LFTs trended down. He was ambulating in the room and tolerating p.o. intake. He was stable for discharge home and will follow-up with general surgery and PCP. He will also need to follow-up with cardiology. Patient Disposition: 01 HOME, SELF-CARE Condition: Stable Health Concerns: Post Hospitalization: new medications and changes needed to prevent readmission or further decline. Pt educated and given instructions on all concerns. Care Plan Goals: Problem: Infection Goal: Temperature within normal limits. Resolved infection. Instructions: Follow provided instructions. Follow up with primary physician as directed. Contact primary care physician or report to the closest Emergency Room if condition worsens. Plan of Treatment: Continue with present treatment and follow up plan. Pt is to keep follow up appointment as instructed and take medications as ordered. Assessment: No distress noted at discharge. Prescriptions: New Eliquis 5 mg Tablet 5 mg PO BID 30 Days Qty: 60 0RF pantoprazole [Protonix] 40 mg Tablet,Delayed Release (Dr/Ec) 40 mg PO BID 30 Days Qty: 60 0RF Continued metformin 1,000 mg tablet 1,000 mg PO BID 90 Days Qty: 180 4RF simvastatin 40 mg tablet 40 mg PO QDAY 90 Days Qty: 90 4RF metoprolol tartrate 50 mg tablet 50 mg PO BID 90 Days Qty: 180 4RF pioglitazone 30 mg tablet 30 mg PO QDAY 90 Days Qty: 90 4RF chlorpromazine 25 mg tablet 25 mg PO TID MDD 3 Qty: 30 0RF pantoprazole 40 mg tablet,delayed release (DR/EC) 40 mg PO QDAY MDD 1 Qty: 30 0RF irbesartan-hydrochlorothiazide 150-12.5 mg tablet 1 tab PO QDAY insulin NPH isoph U-100 human 100 unit/mL Cartridge 7 unit SUBCUT BID Follow ups/Referrals Follow ups/Referrals: Glen Stanton MD [Primary Care Provider, MEDICAL] - 11/23/24 4:20 pm ISAIAS MENA MD [STAFF PHYSICIAN, Cardiology] - 12/06/24 10:00 am FLETCHER RIVERA [STAFF PHYSICIAN, MEDICAL] - 11/23/24 3:30 pm Instructions Instructions: Bleeding Precautions When on Anticoagulant Therapy, Adult, Urinar y Tract Infection, Male, Hiccups: What They Mean, Upper Endoscopy, Care After, Gastroesophageal Reflux Disease, Adult, Atrial Fibrillation, [id number] Activity Restrictions/Additional Instructions: Take medications as directed. Follow up with Cardiology, Surgeon and PCP as scheduled. Contact MD with any questions. Stand Alone Forms: Find Help Web Site, Post Hospital Follow Up Care Print Language: SCOTTISH
== END 2024-11-10 12:05 | disposition home or self-care (01) | DRG 309 ==
LOC: ER 11:07 → U 11:07 → ICU 14:36
PROVIDERS: ADMIT Family Medicine; ATTEND Family Medicine

== ENCOUNTER 2025-01-26 20:16 | Inpatient (IN) ==
[2025-01-26 20:39] VITALS: BMI 26.4
--- NOTE | 2025-01-26 21:04 | DR.SOBA ---
HPI Time Seen Time Seen by Provider: 01/26/25 21:02 Primary Care Physician Primary Care Physician: Dr. Stanton Complaints Chief Complaint Doctors Comments: 79 yo M, hx of CHF, brought in by brother for confusion, weakness, dyspnea, bilat lower ext edema. Admits to a couple episodes of vomiting yest, none today. Denies fever. Denies other complaints. Chief Complaint:: Patient brought in via WC by brother with complaints of SOB, nose bleeds, abdominal distention, N/V, and hematocehezia. Pts brother states since friday pt "hasn't been acting himself". Pt A&O upon arrival to er. no s/s distress noted during triage. Self Treatment fo Chief Complaint: NA COVID-19 Coronavirus risk:travel/contact w/high risk person: No Has patient experienced Coronavirus symptoms: No Source History Provided: Patient and Family Member Mode of Arrival Mode of Arrival: Wheelchair Timing Onset of Chief Complaint: 01/21/25 PMH PMH Past Medical History: Yes Past Medical History: Anemia, CHF, Diabetes, Dyslipidemia, GERD, Hypertension and Cancer Past Medical History Comment: Colon cancer - partial colectomy, A-Fib, Past Surgical History: Yes Surgical History: Other Past Surgical History Comment: Partial colectomy Family History History of Family Medical Conditions: Yes Family Medical History: Diabetes Mellitus, Cancer, [place], Coronary Artery Disease and Hypertension Social History Does patient currently use any type of tobacco product: No Have you used tobacco products in the last 12 months: No Type of Tobacco Use: None Does any household member use tobacco: No Alcohol Use: None Do you use any recreational Drugs:: No Lives With: Alone Lives Where: Home Travel Risk Coronavirus risk:travel/contact w/high risk person: No Has patient experienced Coronavirus symptoms: No Infectious screening Have you traveled outside the country in the last 6 months?: No Isolation: Standard ROS Review of Systems Constitutional: Malaise, Fatigue and Other (confusion) ENTM: Epistaxis Respiratoy: Short of Breath Cardiovascular: Edema Gastrointestinal/Abdominal: Vomiting All Other Systems: Reviewed and Negative PE Vital Signs Vitals: Vital Signs Temperature 98.2 F Pulse Rate 85 Pulse Rate 85 Pulse Rate 83 Pulse Rate 84 Pulse Rate 84 Pulse Rate 85 Pulse Rate 92 Respiratory Rate 19 Respiratory Rate 25 Respiratory Rate 24 Respiratory Rate 22 Respiratory Rate 19 Blood Pressure 112/75 Blood Pressure 131/73 Blood Pressure 121/71 Blood Pressure 129/64 O2 Sat by Pulse Oximetry 99 O2 Sat by Pulse Oximetry 99 O2 Sat by Pulse Oximetry 100 O2 Sat by Pulse Oximetry 98 O2 Sat by Pulse Oximetry 100 O2 Sat by Pulse Oximetry 99 General Limitations: No Limitations General Appearance: Alert and In No Apparent Distress Head Head Exam: Normal Inspection Eyes Eye exam: Normal Appearance ENT ENT Exam: Normal Exam Neck Neck Exam: Normal Inspection Chest Chest Inspection: Normal Inspection Respiratory Respiratory Exam: Normal Lung Sounds Bilat Respiratory Exam: Bilateral: Clear to Auscultation Cardiovascular Cardiovascular Exam: Regular Rate and Normal Rhythm Abdominal Exam Abdominal Exam: Normal Inspection, Normal Bowel Sounds and Soft Extremities Extremities Exam: Edema (3+ in bilat lower ext) Back Back Exam: Normal Inspection Neurologic Neurological Exam: Alert and Oriented X3 Psychiatric Psychiatric Exam: Normal Affect and Normal Mood Skin Skin Exam: Warm, Dry, Intact and Normal Color ROR Labs Reviewed 01/26/25 21:01/26/25: Laboratory: WBC 5.7 X10^3/uL (3.6-10.0) 01/26/25 21: RBC 4.13 X10^6/uL (4.7-6.0) L 01/26/25: Hgb 10.4 g/dL (13.5-18.0) L 01/26/25: Hct 32.5 % (42.0-54.0) L 01/26/25: MCV 78.8 fL (80.0-100.0) L 01/26/25: MCH 25.2 pg (27.0-34.0) L 01/26/25 21: MCHC 31.9 g/dL (33.0-35.0) L 01/26/25: RDW 20.3 % (11.6-16.5) H 01/26/25: Plt Count 156 X10^3/uL (150.0-450.0) 01/26/25: Plt Count Comment Adequate (ADEQUATE) 01/26/25: MPV 9.9 fL (7.4-11.0) 01/26/25: Neut % (Auto) 67.4 % (42.0-75.0) 01/26/25: Lymph % (Auto) 24.9 % (21.0-51.0) 01/26/25: [place] % (Auto) 7.1 % (0.0-13.0) 01/26/25: Eos % (Auto) 0.3 % (0.9-2.9) L 01/26/25: Baso % (Auto) 0.3 % (0.2-1.0) 01/26/25: Neut # (Auto) 3.8 x10^3/uL (2.2-4.8) 01/26/25: Lymph # (Auto) 1.4 X10^3/uL (1.3-2.9) 01/26/25: [place] # (Auto) 0.4 x10^3/uL (0.3-0.8) 01/26/25: Eos # (Auto) 0.0 x10^3/uL (0.0-0.2) 01/26/25: Baso # (Auto) 0.0 X10^3/uL (0.0-0.1) 01/26/25: Absolute Nucleated RBC 0.3 /100WBC 01/26/25: Plt Morphology Comment Normal (NORMAL) 01/26/25 RBC Morphology Abnormal (NORMAL) 01/26/25: Hypochromasia Slight A 01/26/25: Poikilocytosis Slight A 01/26/25: Anisocytosis 1+ A 01/26/25: Microcytosis Slight A 01/26/25: Target Cells Slight A 01/26/25: [place] Cells Slight A 01/26/25: PT 20.9 SECONDS (11.8-14.3) 01/26/25: INR Target Range - 01/26/25 INR 1.79 (0.8-1.3) H 01/26/25: APTT 31.4 SECONDS (22.9-36.5) 01/26/25: PTT Comment - 01/26/25: Sodium 138 mmol/L (136-145) 11/05/25 21:25 Corrected Sodium 148 mmol/L (136-145) H 01/26/25:25 Potassium 4.5 mmol/L (3.5-5.1) 01/26/25: Chloride 103 mmol/L (98-107) 01/26/25: Carbon Dioxide 26.0 mmol/L (21-32) 01/26/25: BUN 45 mg/dL (7-18) H 01/26/25: Creatinine 2.47 mg/dL (0.70-1.30) H 01/26/25 21:25 Est GFR (MDRD) Af Amer 33 (>60) L 01/26/25: Est GFR (MDRD) Non-Af 27 (>60) L 01/26/25: Glucose 531 mg/dL (65-99) H* 01/26/25: Lactic Acid 4.3 mmol/L (0.4-2.0) H* 01/26/25: Calcium 8.8 mg/dL (8.5-10.1) 01/26/25: Corrected Calcium 9.8 mg/dL (8.5-10.1) 01/26/25: Magnesium 2.1 mg/dL (2.0-2.9) 01/26/25: Total Bilirubin 2.70 mg/dL (0.2-1.0) H 01/26/25: AST 24 Units/L (15-37) 01/26/25: ALT 36 Units/L (12-78) 01/26/25: Alkaline Phosphatase 295 Units/L (46-116) H 01/26/25: Creatine Kinase 91 Units/L (39-308) 01/26/25: Troponin I High Sens 27.7 ng/L (4.0-60.0) 01/26/25: B-Natriuretic Peptide 2270 pg/mL (0-79) H 01/26/25: Total Protein 6.9 g/dL (6.4-8.2) 01/26/25: Albumin 2.7 g/dL (3.4-5.0) L 01/26/25:25 Globulin 4.2 g/dL (2.5-4.5) 01/26/25: Albumin/Globulin Ratio 0.6 Ratio (1.1-2.1) L 01/26/25 21: Specimen Type Clean catch urine 01/26/25 22:00 Urine Color Yellow (YELLOW) 01/26/25 22:00 Urine Appearance Slightly hazy (CLEAR) 01/26/25 22:00 Urine pH 6.0 (5.0 - 8.0) 01/26/25 22:00 Ur Specific [place] 1.010 (1.000-1.030) 01/26/25 22:00 Urine Protein 1+ (NEGATIVE) 01/26/25 22:00 Urine Glucose (UA) 4+ (NEGATIVE) 01/26/25 22:00 Urine Ketones Negative (NEGATIVE) 01/26/25 22:00 Urine Blood Negative (NEGATIVE) 01/26/25 22:00 Urine Nitrite Negative (NEGATIVE) 01/26/25 22:00 Urine Bilirubin Negative (NEGATIVE) 01/26/25 22: Urine Urobilinogen 2+ (NORMAL) 01/26/25 22:00 Ur Leukocyte Esterase Negative (NEGATIVE) 01/26/25 22:00 Urine RBC 0-2 /HPF (0-3) 01/26/25 22:00 Urine WBC 3-5 /HPF (0-5) 01/26/25 22:00 Ur Squamous Epith Cells Rare /HPF (NEGATIVE) 01/26/25 22:00 Urine Bacteria Negative /HPF (NEGATIVE) 01/26/25 22:00 Urine Mucus Moderate /HPF (NEGATIVE) 01/26/25 22:00 Ur Culture Indicated? No/not indicated 01/26/25 22:00 Opioid Opioid Risk Tool Age ([place] if 16-45): No History of Preadolescent Sexual Abuse: No Total: 0 Total Score Risk Category: Low Risk Copyright: Tony KHAN predicting aberrant behaviors Discharge Plan Diagnosis Discharge Problem: XOCHILT (acute kidney injury), Fluid overload, CHF (congestive heart failure), Acute hyperglycemia, Acidosis, lactic Discharge Plan Patient Disposition: 09 ADMITTED INPATIENT Condition: Stable Prescriptions: No Action Eliquis 5 mg tablet 5 mg PO BID Qty: 60 0RF pantoprazole 40 mg tablet,delayed release (DR/EC) 40 mg PO QDAY MDD 1 Qty: 60 0RF amiodarone 200 mg tablet 200 mg PO BID Qty: 180 1RF furosemide [Lasix] 40 mg tablet 40 mg PO QAM Qty: 90 1RF carvedilol 6.25 mg tablet 6.25 mg PO BID simvastatin 40 mg tablet 40 mg PO HS spironolactone 25 mg tablet 12.5 mg PO QDAY losartan 25 mg tablet 12.5 mg PO QDAY Novolin N NPH U-100 Insulin 100 unit/mL Suspension 10 unit SUBCUT BID Health Concerns: Post Hospitalization: new medications and changes needed to prevent readmission or further decline. Pt educated and given instructions on all concerns. Plan of Treatment: Continue with present treatment and follow up plan. Pt is to keep follow up appointment as instructed and take medications as ordered. Orders to Discharge Patient Discharge Orders: Transfer (Routine); Ordered 01/26/25 Ordered By: Dev Marrero Follow ups/Referrals Follow ups/Referrals: Glen Stanton MD [Primary Care Provider, MEDICAL] - 3 days Instructions Stand Alone Forms: Find Help Web Site, Post Hospital Follow Up Care Print Language: BELGIAN
--- NOTE | 2025-01-26 21:38 | EKG ---
Test Reason : dyspnea Blood Pressure : */* mmHG Vent. Rate : 85 BPM Atrial Rate : 85 BPM P-R Int : 216 ms QRS Dur : 114 ms QT Int : 438 ms P-R-T Axes : * -13 170 degrees QTc Int : 521 ms Sinus rhythm with 1st degree AV block T wave abnormality, consider lateral ischemia Prolonged QT Abnormal ECG When compared with ECG of 04-NOV-2024 12:38, HI interval has increased Nonspecific T wave abnormality now evident in Inferior leads Inverted T waves have replaced nonspecific T wave abnormality in Lateral leads Confirmed by Kurtis Oviedo MD ([id number]) on 01/27/2025 5:38:52 AM Referred By: Confirmed By: Kurtis Oviedo MD
[2025-01-26 21:44] LABS: MEAN PLATELET VOLUME 9.9 fL (7.4-11.0); RED CELL DISTRIBUTION WIDTH 20.3 % (11.6-16.5)
[2025-01-26 21:45] LABS: INR 1.79 (0.8-1.3)
--- NOTE | 2025-01-26 21:51 | CT ---
EXAM: BRAIN W/O CON HISTORY: AMS; Patient brought in via WC by brother with complaints of SOB, nose bleeds, abdominal distention, N/V, and hematocehezia. Pts brother states since friday pt "hasn't been acting himself". COMPARISON: None. TECHNIQUE: Axial non-contrast images of the head were obtained with coronal and sagittal reformats provided. Radiation dose: 959.64 mGy-cm total DLP FINDINGS: No abnormal areas of acute attenuation in the brain parenchyma. Abdi-white differentiation remains intact. No intracranial, extra-axial, fluid collection. No hemorrhage. Periventricular chronic microvascular disease. No mass, mass effect or midline shift. Age related brain parenchymal global atrophy. No ventriculomegaly. No acute fracture. Sinuses are well aerated. Mastoid air cells are well aerated. Globes and intra-orbital contents are unremarkable. IMPRESSION: No acute intracranial abnormality identified. THIS IS AN ELECTRONICALLY VERIFIED FINAL REPORT 01/26/2025 9:47 PM - Electronically signed by Nathaniel Galeano MD
[2025-01-26 21:53] LABS: COR CA(FOR HYPOALB) 9.8 mg/dL (8.5-10.1); COR NA(FOR HYPERGLY) 148.0 mmol/L (136-145); CREATININE 2.47 mg/dL (0.70-1.30); eGFR NON BLACK RACES 27.0 (>60)
--- NOTE | 2025-01-26 21:53 | RAD ---
EXAM: CHEST, 1 VIEW HISTORY: Shortness of Breath; Patient brought in via WC by brother with complaints of SOB, nose bleeds, abdominal distention, N/V, and hematocehezia. Pts brother states since friday pt "hasn't been acting himself". COMPARISON: November 07, 2024 TECHNIQUE: Chest radiographic imaging, AP portable projection, 1 image FINDINGS: No cardiomegaly. No focal airspace disease. No pleural effusion. No pneumothorax. No acute osseous abnormality. IMPRESSION: No imaging findings of acute cardiopulmonary disease. THIS IS AN ELECTRONICALLY VERIFIED FINAL REPORT 01/26/2025 9:50 PM - Electronically signed by Nathaniel Galeano MD
[2025-01-26 22:04] LABS: PLATELET MORPHOLOGY COMMENT NORMAL (NORMAL)
[2025-01-26 22:07] LABS: BLOOD/HEMOGLOBIN,URINE NEGATIVE (NEGATIVE); LEUKOCYTE ESTERASE ,URINE NEGATIVE (NEGATIVE); NITRITES,URINE NEGATIVE (NEGATIVE)
[2025-01-26 22:09] LABS: APPEARANCE,URINE SLIGHTLY HAZY (CLEAR)
[2025-01-26 22:12] LABS: SQUAMOUS EPITHELIAL CELL,UR RARE /HPF (NEGATIVE)
[2025-01-26] MEDS: ROCEPHIN VIAL 1 GRAM 1 G in NS 100 ML IV 100 ML IV ONE (22:28)
[2025-01-26] MEDS: ROCEPHIN VIAL 1 GRAM IV ONE (22:31)
[2025-01-26] MEDS: NovoLIN R (or HumuLIN R) IV ONE (22:34)
[2025-01-26] MEDS ORDERED: MORPHINE SULFATE INJ 2 MG INJ IVP PRN (23:59)
[2025-01-26] MEDS ORDERED: ULTRAM PO PRN (23:59)
[2025-01-26] MEDS ORDERED: ZOFRAN INJ 4 MG VIAL IVP PRN (23:59)
[2025-01-26] MEDS ORDERED: NORCO 5/325 MG TAB PO PRN (23:59)
[2025-01-26] MEDS ORDERED: ZOFRAN TAB 4 MG PO PRN (23:59)
[2025-01-26] MEDS ORDERED: TYLENOL 325 MG TAB PO PRN (23:59)
[2025-01-27] MEDS: ROCEPHIN VIAL 1 GRAM ONE (00:24)
[2025-01-27] MEDS: CONSULT PHARMACY - POTASSIUM & MAGNESIUM XX SCH (00:26)
[2025-01-27] MEDS: LASIX IVP ONE (00:30)
[2025-01-27] MEDS: ALBUMIN HUMAN 25%- 100 ML 100 ML IV SCH (00:43)
[2025-01-27] MEDS: NS 1,000 ML IV 1,000 ML IV SCH (00:44)
[2025-01-27 03:48] LABS: MEAN PLATELET VOLUME 9.6 fL (7.4-11.0); RED CELL DISTRIBUTION WIDTH 19.9 % (11.6-16.5)
[2025-01-27 04:24] LABS: COR CA(FOR HYPOALB) 9.6 mg/dL (8.5-10.1); COR NA(FOR HYPERGLY) 146.0 mmol/L (136-145); CREATININE 2.31 mg/dL (0.70-1.30); eGFR NON BLACK RACES 29.0 (>60)
[2025-01-27 04:32] LABS: PLATELET MORPHOLOGY COMMENT NORMAL (NORMAL)
[2025-01-27] MEDS: NovoLIN R (or HumuLIN R) SUBCUT PRN (06:01)
--- NOTE | 2025-01-27 07:33 | RAD ---
EXAM: Portable chest HISTORY: Congestive heart failure COMPARISON: 01/26/2025 FINDINGS: Hea rt is enlarged. No congestive heart failure is noted. No acute alveolar infiltrates or pleural effusions are identified. A linear density paralleling the right lower chest wall could possibly represent a small pneumothorax. Further evaluation with chest CT is recommended. Bony thorax is unremarkable. IMPRESSION: Linear density paralleling the right lower chest wall could possibly represent a small pneumothorax. Correlation with chest CT is recommended. Cardiomegaly without congestive heart failure No acute infiltrates THIS IS AN ELECTRONICALLY VERIFIED FINAL REPORT 01/27/2025 7:30 AM - Electronically signed by Brett Sams MD
[2025-01-27] MEDS: COREG TAB 6.25 MG PO SCH (08:21)
[2025-01-27] MEDS: PROTONIX TAB 40 MG PO SCH (08:21)
[2025-01-27] MEDS: ELIQUIS PO SCH (08:21)
[2025-01-27] MEDS: LASIX IVP SCH (08:21)
[2025-01-27] MEDS: COLACE CAP 100 MG PO SCH (08:21)
[2025-01-27] MEDS: COZAAR PO SCH (08:22)
[2025-01-27] MEDS: CORDARONE TAB 200 MG PO SCH (08:22)
[2025-01-27] MEDS: NovoLIN N or HumuLIN N SC SCH (08:37)
[2025-01-27] MEDS ORDERED: ALDACTONE TAB 25 MG PO SCH (09:00)
--- NOTE | 2025-01-27 10:47 | DR.H&P ---
H&P History & Physical for Day of: H&P Date: 01/27/25 Chief Complaint Chief Complaint: Shortness of breath, confusion History of Present Illness History of Present Illness: Patient is a 79-year-old male with a past medical history of Atrial fibrillation, CHF (EF 20-25%), hypertension, diabetes, CKD, admitted after having some confusion and progressively worsening shortness of breath. He denies fevers or chills. Labs/imaging: WBC 5.4, hemoglobin 10.1, platelets 151, sodium 142, potassium 3.8, creatinine 2.31, glucose 249, lactic acid 3.6, A1c 9.9, troponin negative, BNP 1960, brain CT was negative for any acute intracranial findings, chest x-ray yesterday revealed no acute cardiopulmonary disease. Chest x-ray this morning revealed linear density paralleling the right lower chest wall could possibly represent a small pneumothorax. Patient was admitted for acute CHF exacerbation. Will at this time continue with IV Rocephin while awaiting AIT results. Blood cultures pending. UA negative. He is currently receiving IV fluids normal saline at 80 mL/h, will change to half-normal saline. Will follow-up repeat lactic acid. Will continue with IV Lasix 40 mg daily. He does take p.o. Lasix 40 mg daily at home. Will get a stat CT of the chest without contrast to rule out pneumothorax. Restart home medications. Otherwise continue current treatment plan. Continue closely monitor and follow-up labs/imaging. Time spent for clinical assessment, reviewing labs/imaging, physical exam, decision making and documentation greater than 45 mins. Past Medical History Past Medical History: Anemia, CHF, Diabetes, Dyslipidemia, GERD, Hypertension and Cancer Past Surgical History Surgical History: Other Family History Family Medical History: Diabetes Mellitus, Cancer, [place], Coronary Artery Disease and Hypertension Social History Does patient currently use any type of tobacco product: No Have you used tobacco products in the last 12 months: No Type of Tobacco Use: None Does any household member use tobacco: No Alcohol Use: None Drug Use: None Medications Home Medications: Home Medications Medication Instructions Recorded Confirmed Type carvedilol 6.25 mg tablet 6.25 mg PO BID 01/26/2508/15 History insulin NPH isoph U-100 human 100 10 unit subcut BID 1 03/28/24 01/26/25 History unit/mL subcutaneous suspension (Novolin N NPH U-100 Insulin isophane) losartan 25 mg tablet 12.5 mg PO QDAY 01/26/2508/15 History simvastatin 40 mg tablet 40 mg PO HS 01/26/25 5 History spironolactone 25 mg tablet 12.5 mg PO QDAY 01/26/25 1 03/28/24 History Allergies Allergies Allergy/AdvReac Type Severity Reaction Status Date / Time No Known Drug Allergies Allergy Unknown Verified 01/26/25 20:39 (NKDA) Labs 01/27/25 03:28 01/27/25 03:28 Labs: Laboratory WBC 5.4 X10^3/uL (3.6-10.0) 01/27/25 03: RBC 4.04 X10^6/uL (4.7-6.0) L 01/27/25 03:28 Hgb 10.1 g/dL (13.5-18.0) L 01/27/25 03:28 Hct 31.6 % (42.0-54.0) L 01/27/25 03:28 MCV 78.4 fL (80.0-100.0) L 01/27/25 03:28 MCH 25.0 pg (27.0-34.0) L 01/27/25 03: MCHC 31.8 g/dL (33.0-35.0) L 01/27/25 03:28 RDW 19.9 % (11.6-16.5) H 01/27/25 03:28 Plt Count 151 X10^3/uL (150.0-450.0) 01/27/25 03:28 Plt Count Comment Adequate (ADEQUATE) 01/27/25 03:28 MPV 9.6 fL (7.4-11.0) 01/27/25 03:28 Neut % (Auto) 58.2 % (42.0-75.0) 01/27/25 03:28 Lymph % (Auto) 34.4 % (21.0-51.0) 01/27/25 03:28 [place] % (Auto) 6.2 % (0.0-13.0) 01/27/25 03:28 Eos % (Auto) 0.6 % (0.9-2.9) L 01/27/25 03:28 Baso % (Auto) 0.6 % (0.2-1.0) 01/27/25 03:28 Neut # (Auto) 3.1 x10^3/uL (2.2-4.8) 01/27/25 03:28 Lymph # (Auto) 1.9 X10^3/uL (1.3-2.9) 01/27/25 03:28 [place] # (Auto) 0.3 x10^3/uL (0.3-0.8) 01/27/25 03:28 Eos # (Auto) 0.0 x10^3/uL (0.0-0.2) 01/27/25 03: Baso # (Auto) 0.0 X10^3/uL (0.0-0.1) 01/27/25 03:28 Absolute Nucleated RBC 0.5 /100WBC 01/27/25 03:28 Plt Morphology Comment Normal (NORMAL) 01/27/25 03: RBC Morphology Abnormal (NORMAL) 01/27/25 03:28 Hypochromasia Slight A 01/27/25 03:28 Poikilocytosis Slight A 01/27/25 03:28 Anisocytosis 1+ A 01/27/25 03:28 Microcytosis Slight A 01/27/25 03:28 Target Cells Slight A 01/27/25 03: [place] Cells Slight A 01/27/25 03:28 PT 20.9 SECONDS (11.8-14.3) 01/26/25 21:25 INR Target Range - 01/26/25: INR 1.79 (0.8-1.3) H 01/26/25 21: APTT 31.4 SECONDS (22.9-36.5) 01/26/25 21: PTT Comment - 01/26/25 21:25 Sodium 142 mmol/L (136-145) 01/27/25 03:28 Corrected Sodium 146 mmol/L (136-145) H 01/27/25 03:28 Potassium 3.8 mmol/L (3.5-5.1) 01/27/25 03: Chloride 105 mmol/L (98-107) 01/27/25 03:28 Carbon Dioxide 27.3 mmol/L (21-32) 01/27/25 03:28 BUN 41 mg/dL (7-18) H 01/27/25 03:28 Creatinine 2.31 mg/dL (0.70-1.30) H 01/27/25 03:28 Est GFR (MDRD) Af Amer 35 (>60) L 01/27/25 03:28 Est GFR (MDRD) Non-Af 29 (>60) L 01/27/25 03:28 Glucose 249 mg/dL (65-99) H 01/27/25 03:28 POC Glucose (mg/dL) 247 mg/dL (65-99) H 01/27/25 05:56 Hemoglobin A1c 9.9 % 01/27/25 03:28 Lactic Acid 3.2 mmol/L (0.4-2.0) H 01/27/25 08:32 Calcium 8.8 mg/dL (8.5-10.1) 01/27/25 03:28 Corrected Calcium 9.6 mg/dL (8.5-10.1) 01/27/25 03:28 Magnesium 2.1 mg/dL (2.0-2.9) 01/27/25 03:28 Total Bilirubin 2.50 mg/dL (0.2-1.0) H 01/27/25 03:28 AST 25 Units/L (15-37) 01/27/25 03:28 ALT 34 Units/L (12-78) 01/27/25 03:28 Alkaline Phosphatase 250 Units/L (46-116) H 01/27/25 03:28 Creatine Kinase 91 Units/L (39-308) 01/26/25 21:25 Troponin I High Sens 31.3 ng/L (4.0-60.0) 01/27/25 03:28 B-Natriuretic Peptide 1960 pg/mL (0-79) H 01/27/25 03:28 Total Protein 6.7 g/dL (6.4-8.2) 01/27/25 03:28 Albumin 3.0 g/dL (3.4-5.0) L 01/27/25 03:28 Globulin 3.7 g/dL (2.5-4.5) 01/27/25 03:28 Albumin/Globulin Ratio 0.8 Ratio (1.1-2.1) L 01/27/25 03:28 Specimen Type Clean catch urine 01/26/25 22:00 Urine Color Yellow (YELLOW) 01/26/25 22:00 Urine Appearance Slightly hazy (CLEAR) 01/26/25 22:00 Urine pH 6.0 (5.0 - 8.0) 01/26/25 22:00 Ur Specific [place] 1.010 (1.000-1.030) 01/26/25 22:00 Urine Protein 1+ (NEGATIVE) 01/26/25 22:00 Urine Glucose (UA) 4+ (NEGATIVE) 01/26/25 22:00 Urine Ketones Negative (NEGATIVE) 01/26/25 22:00 Urine Blood Negative (NEGATIVE) 01/26/25 22:00 Urine Nitrite Negative (NEGATIVE) 01/26/25: Urine Bilirubin Negative (NEGATIVE) 01/26/25 22: Urine Urobilinogen 2+ (NORMAL) 01/26/25 22:00 Ur Leukocyte Esterase Negative (NEGATIVE) 01/26/25 22:00 Urine RBC 0-2 /HPF (0-3) 01/26/25 22:00 Urine WBC 3-5 /HPF (0-5) 01/26/25 22:00 Ur Squamous Epith Cells Rare /HPF (NEGATIVE) 01/26/25 22:00 Urine Bacteria Negative /HPF (NEGATIVE) 01/26/25 22:00 Urine Mucus Moderate /HPF (NEGATIVE) 01/26/25 22:00 Ur Culture Indicated? No/not indicated 01/26/25 22:00 Review of Systems Constitutional: No Symptoms Reported Eyes: No Symptoms Reported ENT: No Symptoms Reported Respiratory: Shortness of Breath Cardiovascular: No Symptoms Reported Gastrointestinal: No Symptoms Reported Genitourinary: No Symptoms Reported Musculoskeletal: No Symptoms Reported Skin: No Symptoms Reported Neurological: No Symptoms Reported Physical Exam Vital Signs: Vital Signs Temperature 97.9 F Temperature 98.3 F Pulse Rate 93 Pulse Rate 95 Pulse Rate 85 Pulse Rate 81 Blood Pressure 120/69 Blood Pressure 119/75 O2 Sat by Pulse Oximetry 99 O2 Sat by Pulse Oximetry 96 O2 Sat by Pulse Oximetry 100 O2 Sat by Pulse Oximetry 100 Oriented: Normal Eyes: Normal Ear: Normal Nose: Normal Throat: Normal Respiratory: Diminished Throughout Cardiovascular: Normal : Normal Auscultation: Bowel Sounds: Normal Palpation: Normal Tenderness: Normal Skin: Normal Musculoskeletal: Normal Psychiatric: Normal Mood Description: Calm and Appropriate Affect: Normal Speech Pattern: Clear and Appropriate Assessment/Plan (1) CHF exacerbation: Qualifiers: Heart failure type: unspecified Qualified Code(s): I50.9 - Heart failure, unspecified Status: Acute (2) Acute on chronic renal failure: Qualifiers: Acute renal failure type: unspecified Chronic kidney disease stage: u nspecified stage Qualified Code(s): N17.9 - Acute kidney failure, unspecified; N18.9 - Chronic kidney disease, unspecified Status: Acute (3) Acidosis, lactic: Status: Acute (4) Atrial fibrillation: Qualifiers: Atrial fibrillation type: unspecified Qualified Code(s): I48.91 - Unspecified atrial fibrillation Status: Acute (5) Type 2 diabetes mellitus: Qualifiers: Diabetes mellitus skilled nursing insulin use: without skilled nursing use Diabetes mellitus complication status: with other specified complication Qualified Code(s): E11.69 - Type 2 diabetes mellitus with other specified complication Status: Chronic (6) Hypertension: Qualifiers: Hypertension type: primary hypertension Qualified Code(s): I10 - Essential (primary) hypertension Status: Chronic (7) Mixed hyperlipidemia: Status: Chronic Review H&P Reviewed: Yes Patient was examined?: Yes
[2025-01-27] MEDS ORDERED: NS 1/2 1,000 ML IV 1,000 ML IV ONE ×2 (10:51→23:35)
[2025-01-27] MEDS: ROCEPHIN VIAL 1 GRAM 1 G in NS 100 ML IV 100 ML IV SCH (11:16)
[2025-01-27] MEDS: NS 1/2 1,000 ML IV 1,000 ML IV SCH (11:16)
--- NOTE | 2025-01-27 11:17 | CT ---
EXAM: CT chest without contrast HISTORY: Abnormal chest x-ray, possible right pneumothorax TECHNIQUE: Axial noncontrast images with coronal and sagittal reformats. Dose reduction procedures were used with mA/kv adjusted for body size. This examination is limited due to the lack of intravenous contrast. The examination was performed without contrast at the sole direction of the ordering caregiver. Radiology was afforded no input as to the method of performance of this examination. COMPARISON: Chest x-ray same date FINDINGS: Examination of the mediastinum demonstrated no evidence for mediastinal mass, abnormal mediastinal or abnormal hilar adenopathy or significant aortic abnormality but only to the limitations of an unenhanced examination. 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 Bilateral pleural effusions are present [id number]. Those portions of the upper abdominal organs visualized appeared within normal limits to the limitations of an unenhanced examination with the exception of cholelithiasis without cholecystitis and moderate ascites. Examination of the lung yi demonstrated no parenchymal masses, alveolar infiltrates, areas of consolidation, or bronchiectasis. No significant noncalcified pulmonary nodules are identified. A right pneumothorax is not confirmed. No significant noncalcified pulmonary nodules are identified. IMPRESSION: Right pneumothorax is not confirmed No acute pulmonary infiltrates or significant noncalcified pulmonary nodules identified. Bilateral moderate pleural effusions [id number] Cholelithiasis without evidence for cholecystitis Moderate ascites THIS IS AN ELECTRONICALLY VERIFIED FINAL REPORT 01/27/2025 11:13 AM - Electronically signed by Brett Sams MD
[2025-01-27] MEDS: SNACK - Diabetic Appropriate PO SCH (19:15)
[2025-01-27] MEDS: ZOCOR TAB 40 MG PO SCH (21:10)
[2025-01-28 06:00] LABS: MEAN PLATELET VOLUME 9.5 fL (7.4-11.0)
[2025-01-28 06:09] LABS: RED CELL DISTRIBUTION WIDTH 20.3 % (11.6-16.5)
[2025-01-28 06:15] LABS: COR CA(FOR HYPOALB) 9.5 mg/dL (8.5-10.1); CREATININE 2.13 mg/dL (0.70-1.30); eGFR NON BLACK RACES 32 (>60)
[2025-01-28 06:43] LABS: PLATELET MORPHOLOGY COMMENT NORMAL (NORMAL)
[2025-01-28] MEDS: ALDACTONE TAB 25 MG PO SCH (08:33)
[2025-01-28] MEDS: LASIX PO SCH (08:36)
[2025-01-28] MEDS ORDERED: LASIX IVP SCH (09:00)
[2025-01-28] MEDS ORDERED: NS 1/2 1,000 ML IV 1,000 ML IV ONE (09:19)
[2025-01-28] MEDS: NS 1/2 1,000 ML IV 1,000 ML IV SCH (09:25)
[2025-01-28] MEDS ORDERED: BUTT CREAM (COMPOUND) ONE (14:10)
[2025-01-28] MEDS: BUTT CREAM (COMPOUND) TOP PRN (14:10)
[2025-01-29 06:20] LABS: MEAN PLATELET VOLUME 9.5 fL (7.4-11.0); RED CELL DISTRIBUTION WIDTH 20.4 % (11.6-16.5)
[2025-01-29 06:35] LABS: COR CA(FOR HYPOALB) 9.3 mg/dL (8.5-10.1); COR NA(FOR HYPERGLY) 146.0 mmol/L (136-145); CREATININE 2.2 mg/dL (0.70-1.30); eGFR NON BLACK RACES 31.0 (>60)
[2025-01-29 07:10] LABS: PLATELET MORPHOLOGY COMMENT NORMAL (NORMAL)
[2025-01-29] MEDS ORDERED: NS 1/2 1,000 ML IV 1,000 ML IV ONE (08:35)
--- NOTE | 2025-01-29 13:21 | NOTE.SOAP ---
Soap Note Note for Day of Date of Exam: 01/29/25 Subjective Data Subjective Data: Elderly male admitted with acute CHF and CKD exacerbations. Slowly improving. Does complain of some constipation today. Very debilitated with plans to go to rehab Friday. Objective Data Objective Data: Well-developed, well-nourished, elderly male in no acute distress. Heart irregularly, regular. Lungs are clear. Belly is soft with bowel sounds present. It is dull to percussion throughout with some mild distention. No guarding. Some mild cognitive delays. Head NCAT, hearing grossly normal. Assessment Assessment: Acute on chronic CHF exacerbation Acute on chronic kidney disease PAF Constipation Plan Plan: KUB, clean-out, no other changes today.
[2025-01-29] MEDS: MILK OF MAGNESIA PO SCH (20:13)
[2025-01-30 05:51] LABS: COR CA(FOR HYPOALB) 9.2 mg/dL (8.5-10.1); COR NA(FOR HYPERGLY) 145.0 mmol/L (136-145); CREATININE 2.16 mg/dL (0.70-1.30); eGFR NON BLACK RACES 32.0 (>60)
[2025-01-30 06:07] LABS: MEAN PLATELET VOLUME 9.4 fL (7.4-11.0); RED CELL DISTRIBUTION WIDTH 20.3 % (11.6-16.5)
[2025-01-30 06:13] LABS: PLATELET MORPHOLOGY COMMENT NORMAL (NORMAL)
[2025-01-30] MEDS ORDERED: CONSULT PHARMACY - POTASSIUM & MAGNESIUM XX SCH (07:00)
--- NOTE | 2025-01-30 07:03 | RAD ---
EXAM: KUB HISTORY: Constipation COMPARISON: .br.br.br.br.br.br image quality suboptimal. There is no definite intestinal distention or obvious increase in fecal burden. No mass, visceral enlargement, abnormal calcification identified. IMPRESSION: No acute findings. See above technical reservations. THIS IS AN ELECTRONICALLY VERIFIED FINAL REPORT 01/30/2025 6:59 AM - Electronically signed by Chase Villalobos MD
[2025-01-30] MEDS ORDERED: NS 1/2 1,000 ML IV 1,000 ML IV ONE (08:33)
[2025-01-30] MEDS: KLOR-CON 10 MEQ TAB PO ONE (08:49)
[2025-01-30] MEDS: GYLCERIN ADULT SUPP RECTAL SCH (10:23)
--- NOTE | 2025-01-30 13:08 | NOTE.SOAP ---
Soap Note Note for Day of Date of Exam: 01/30/25 Subjective Data Subjective Data: Still no good bowel movement. KUB benign. Currently resting comfortably. No acute events overnight. Did have some bright red blood per rectum this morning after placement of glycerin suppository. Objective Data Objective Data: No acute distress, resting comfortably. Head NCAT. Heart regular rate and r hythm. Lungs clear. Belly soft, distended, bowel sounds present. Assessment Assessment: Constipation Anemia of chronic kidney disease Thrombocytopenia BRBPR Plan Plan: Start lactulose. Continue stool softeners. Continue to monitor H/H and other labs.
[2025-01-30] MEDS: CHRONULAC PO ONE (15:08)
[2025-01-31 05:14] LABS: MEAN PLATELET VOLUME 9.2 fL (7.4-11.0); RED CELL DISTRIBUTION WIDTH 20.0 % (11.6-16.5)
[2025-01-31 05:21] LABS: COR CA(FOR HYPOALB) 9.1 mg/dL (8.5-10.1); COR NA(FOR HYPERGLY) 144.0 mmol/L (136-145); CREATININE 2.0 mg/dL (0.70-1.30); eGFR NON BLACK RACES 35.0 (>60)
[2025-01-31 05:30] LABS: PLATELET MORPHOLOGY COMMENT NORMAL (NORMAL)
[2025-01-31 08:03] VITALS: PULSE 82; RESP 19
[2025-01-31] MEDS ORDERED: NS 1/2 1,000 ML IV 1,000 ML IV ONE (08:51)
[2025-01-31 11:57] VITALS: BP 109/71; TEMP 98.2; O2SAT 96
--- NOTE | 2025-01-31 12:07 | PCM.PROG ---
Progress Note Progress Note for Day of Date of Exam: 01/28/25 Subjective Subjective: Patient is a 79-year-old male with a past medical history of Atrial fibrillation, CHF (EF 20-25%), hypertension, diabetes, CKD, admitted for CHF exacerbation. There was a concern on chest x-ray yesterday and patient did get a CT of the chest that was negative for pneumothorax. This morning he is resting in bed. No acute events overnight. He does report some improvement in symptoms. Labs/imaging: WBC 5.5, hemoglobin 10.1, platelets 146, sodium 141, potassium 3.6, creatinine 2.13, glucose 89. Continue IV Rocephin while awaiting AIT results. Blood cultures pending. UA negative. He is currently receiving IV fluids 1/2 normal saline at 80 mL/h, will change to KVO. Change IV Lasix 40 mg daily to p.o. Lasix 40 mg daily. Home medications have been resumed. Otherwise continue current treatment plan. Continue closely monitor and follow- up labs/imaging. Past Medical Family Social History Allergies: Allergies No Known Drug Allergies (NKDA) Allergy (Unknown, Verified 01/26/25 20:39) Review of Systems ROS changes noted: see HPI Vital Signs and I&O's Vital Signs: Vital Signs Temperature 98.2 F Temperature 98.6 F Pulse Rate 82 Pulse Rate 82 Respiratory Rate 19 Respiratory Rate 19 Blood Pressure 109/71 Blood Pressure 119/59 O2 Sat by Pulse Oximetry 96 O2 Sat by Pulse Oximetry 98 Intake and Output: Intake & Output 01/28/25 01/29/25 01/30/25 01/31/25 23:59 23:59 23:59 23:59 Intake Total 2514 / 2514 2307 / 2307 2245 / 2245 660 / 660 Output Total 800 / 800 200 / 200 200 / 200 Balance 1714 / 1714 2307 / 2307 2045 / 2045 460 / 460 Physical Exam Oriented: Normal Eyes: Normal Ear: Normal Nose: Normal Throat: Normal Respiratory: Diminished Cardiovascular: Normal : Normal Auscultation: Bowel Sounds: Normal Tenderness: Normal Skin: Normal Musculoskeletal: Normal Psychiatric: Normal Mood Description: Calm and Appropriate Affect: Normal Speech Pattern: Clear and Appropriate Laboratory and Diagnostics 01/31/25 04:37 01/31/25 04:37 Labs: 01/26/25 21:25 Blood Blood Culture - Preliminary 01/26/25 21:17 Blood Blood Culture - Preliminary Laboratory WBC 5.8 X10^3/uL (3.6-10.0) 01/31/25 04:37 RBC 3.62 X10^6/uL (4.7-6.0) L 01/31/25 04:37 Hgb 9.3 g/dL (13.5-18.0) L 01/31/25 04:37 Hct 28.0 % (42.0-54.0) L 01/31/25 04:37 MCV 77.5 fL (80.0-100.0) L 01/31/25 04:37 MCH 25.7 pg (27.0-34.0) L 01/31/25 04:37 MCHC 33.1 g/dL (33.0-35.0) 01/31/25 04:37 RDW 20.0 % (11.6-16.5) H 01/31/25 04:37 Plt Count 176 X10^3/uL (150.0-450.0) 01/31/25 04:37 Plt Count Comment Adequate (ADEQUATE) 01/31/25 04:37 MPV 9.2 fL (7.4-11.0) 01/31/25 04:37 Neut % (Auto) 71.6 % (42.0-75.0) 01/31/25 04:37 Lymph % (Auto) 19.5 % (21.0-51.0) L 01/31/25 04:37 [place] % (Auto) 7.3 % (0.0-13.0) 01/31/25 04:37 Eos % (Auto) 1.0 % (0.9-2.9) 01/31/25 04:37 Baso % (Auto) 0.6 % (0.2-1.0) 01/31/25 04:37 Neut # (Auto) 4.2 x10^3/uL (2.2-4.8) 01/31/25 04:37 Lymph # (Auto) 1.1 X10^3/uL (1.3-2.9) L 01/31/25 04:37 [place] # (Auto) 0.4 x10^3/uL (0.3-0.8) 01/31/25 04:37 Eos # (Auto) 0.1 x10^3/uL (0.0-0.2) 01/31/25 04:37 Baso # (Auto) 0.0 X10^3/uL (0.0-0.1) 01/31/25 04:37 Absolute Nucleated RBC 0.4 /100WBC 01/31/25 04:37 Plt Morphology Comment Normal (NORMAL) 01/31/25 04:37 RBC Morphology Abnormal (NORMAL) 01/31/25 04:37 Hypochromasia Slight A 01/31/25 04:37 Poikilocytosis Present 01/31/25 04:37 Anisocytosis Slight A 01/31/25 04:37 Microcytosis Slight A 01/31/25 04:37 Target Cells Present 01/31/25 04:37 Cher Cells Present 01/30/25 05:01 Schistocytes Present 01/31/25 04:37 PT 20.9 SECONDS (11.8-14.3) 01/26/25 21:25 INR Target Range - 01/26/25 21:25 INR 1.79 (0.8-1.3) H 01/26/25 21:25 APTT 31.4 SECONDS (22.9-36.5) 01/26/25 21:25 PTT Comment - 01/26/25 21:25 Sodium 142 mmol/L (136-145) 01/31/25 04:37 Corrected Sodium 144 mmol/L (136-145) 01/31/25 04:37 Potassium 3.7 mmol/L (3.5-5.1) 01/31/25 04:37 Chloride 109 mmol/L (98-107) H 01/31/25 04:37 Carbon Dioxide 22.7 mmol/L (21-32) 01/31/25 04:37 BUN 25 mg/dL (7-18) H 01/31/25 04:37 Creatinine 2.00 mg/dL (0.70-1.30) H 01/31/25 04:37 Est GFR (MDRD) Af Amer 42 (>60) L 01/31/25 04:37 Est GFR (MDRD) Non-Af 35 (>60) L 01/31/25 04:37 Glucose 184 mg/dL (65-99) H 01/31/25 04:37 POC Glucose (mg/dL) 197 mg/dL (65-99) H 01/31/25 10:34 Hemoglobin A1c 9.9 % 01/27/25 03:28 Lactic Acid 3.2 mmol/L (0.4-2.0) H 01/27/25 08:32 Calcium 8.4 mg/dL (8.5-10.1) L 01/31/25 04:37 Corrected Calcium 9.1 mg/dL (8.5-10.1) 01/31/25 04:37 Magnesium 2.1 mg/dL (2.0-2.9) 01/30/25 05:01 Total Bilirubin 2.50 mg/dL (0.2-1.0) H 01/31/25 04:37 AST 41 Units/L (15-37) H 01/31/25 04:37 ALT 40 Units/L (12-78) 01/31/25 04:37 Alkaline Phosphatase 253 Units/L (46-116) H 01/31/25 04:37 Creatine Kinase 91 Units/L (39-308) 01/26/25 21:25 Troponin I High Sens 31.3 ng/L (4.0-60.0) 01/27/25 03:28 B-Natriuretic Peptide 1960 pg/mL (0-79) H 01/27/25 03:28 Total Protein 6.4 g/dL (6.4-8.2) 01/31/25 04:37 Albumin 3.1 g/dL (3.4-5.0) L 01/31/25 04:37 Globulin 3.3 g/dL (2.5-4.5) 01/31/25 04:37 Albumin/Globulin Ratio 0.9 Ratio (1.1-2.1) L 01/31/25 04:37 Specimen Type Clean catch urine 01/26/25 22:00 Urine Color Yellow (YELLOW) 01/26/25 22:00 Urine Appearance Slightly hazy (CLEAR) 01/26/25 22:00 Urine pH 6.0 (5.0 - 8.0) 01/26/25 22:00 Ur Specific [place] 1.010 (1.000-1.030) 01/26/25 22:00 Urine Protein 1+ (NEGATIVE) 01/26/25 22:00 Urine Glucose (UA) 4+ (NEGATIVE) 01/26/25 22:00 Urine Ketones Negative (NEGATIVE) 01/26/25 22:00 Urine Blood Negative (NEGATIVE) 01/26/25 22:00 Urine Nitrite Negative (NEGATIVE) 01/26/25 22:00 Urine Bilirubin Negative (NEGATIVE) 01/26/25 22:00 Urine Urobilinogen 2+ (NORMAL) 01/26/25 22:00 Ur Leukocyte Esterase Negative (NEGATIVE) 01/26/25 22:00 Urine RBC 0-2 /HPF (0-3) 01/26/25 22:00 Urine WBC 3-5 /HPF (0-5) 01/26/25 22:00 Ur Squamous Epith Cells Rare /HPF (NEGATIVE) 01/26/25 22:00 Urine Bacteria Negative /HPF (NEGATIVE) 01/26/25 22:00 Urine Mucus Moderate /HPF (NEGATIVE) 01/26/25 22:00 Ur Culture Indicated? No/not indicated 01/26/25 22:00 Resp Viral Panel (PCR) See scanned report 01/27/25 10:06 Plan (1) CHF exacerbation: Status: Acute Qualifiers: Heart failure type: unspecified Qualified Code(s): I50.9 - Heart failure, unspecified (2) Acute on chronic renal failure: Status: Acute Qualifiers: Acute renal failure type: unspecified Chronic kidney disease stage: u nspecified stage Qualified Code(s): N17.9 - Acute kidney failure, unspecified; N18.9 - Chronic kidney disease, unspecified (3) Acidosis, lactic: Status: Acute (4) Atrial fibrillation: Status: Acute Qualifiers: Atrial fibrillation type: unspecified Qualified Code(s): I48.91 - Unspecified atrial fibrillation (5) Type 2 diabetes mellitus: Status: Chronic Qualifiers: Diabetes mellitus usp insulin use: without usp use Diabetes mellitus complication status: with other specified complication Qualified Code(s): E11.69 - Type 2 diabetes mellitus with other specified complication (6) Hypertension: Status: Chronic Qualifiers: Hypertension type: primary hypertension Qualified Code(s): I10 - Essential (primary) hypertension (7) Mixed hyperlipidemia: Status: Chronic
== END 2025-01-31 17:12 | disposition home or self-care (01) | DRG 292 ==
LOC: ER 20:16 → ICU 23:11
PROVIDERS: ADMIT Obstetrics & Gynecology Obstetrics; ATTEND Family Medicine
DX: R94.4 Abnormal results of kidney function studies; E78.2 Mixed hyperlipidemia; K92.1 Melena; N17.8 Other acute kidney failure; N18.9 Chronic kidney disease, unspecified; R94.31 Abnormal electrocardiogram [ECG] [EKG]; E11.65 Type 2 diabetes mellitus with hyperglycemia; Z85.038 Personal history of other malignant neoplasm of large intestine; R60.0 Localized edema; D69.6 Thrombocytopenia, unspecified; R79.1 Abnormal coagulation profile; R04.0 Epistaxis; Z79.01 Long term (current) use of anticoagulants; D63.1 Anemia in chronic kidney disease; R41.82 Altered mental status, unspecified; R11.2 Nausea with vomiting, unspecified; E83.51 Hypocalcemia; I48.91 Unspecified atrial fibrillation; E80.6 Other disorders of bilirubin metabolism; R06.09 Other forms of dyspnea; K59.09 Other constipation; Z90.49 Acquired absence of other specified parts of digestive tract; Z79.4 Long term (current) use of insulin; E87.20 Acidosis, unspecified; R06.02 Shortness of breath; I13.0 Hypertensive heart and chronic kidney disease with heart failure and stage 1 through stage 4 chronic kidney disease, or unspecified chronic kidney disease; E11.22 Type 2 diabetes mellitus with diabetic chronic kidney disease; I50.9 Heart failure, unspecified